=== PATIENT | male | born 1985 | race Caucasian/White ===

== ENCOUNTER 2023-10-16 06:51 | Emergency (ER) | payer OTHER, SELFPAY ==
[2023-10-16] VITALS (8 sets, daily range): BP systolic 46–190; BP diastolic 34–114; BMI 27.6
[2023-10-16] MEDS: DILAUDID 0.5 MG IV (07:31)
[2023-10-16] MEDS: ZOFRAN 4 MG IV (07:31)
[2023-10-16] MEDS: NSS 1000 IV ×2 (07:32→09:02)
[2023-10-16 07:53] LABS: % Basophils 0.7 % (0-2); % Immature Granulocytes 0.3 % (0-0.5); % Lymphocytes 25.5 % (20.5-51.1); % Monocytes 8.5 % (1.7-9.3); Absolute Basophils 0.1 10^3/uL (0-0.2); Absolute Eosinophils 0.5 10^3/uL (0-0.7); Absolute Lymphocytes 1.8 10^3/uL (1.2-3.4); Absolute Monocytes 0.6 10^3/uL (0.1-0.6); Absolute Neutrophils 4.1 10^3/uL (1.4-6.5); Hematocrit 43.8 % (39.0-52.0); Hemoglobin 15.3 g/dL (13.0-18.0); Mean Corp Hgb Conc. 34.9 g/dL (33.0-37.0); Mean Corpuscular Hgb 31.3 pg (27.0-31.0); Mean Corpuscular Volume 89.6 fL (80.0-94.0); Mean Platelet Volume 9.9 fL (7.4-10.4); Nucleated Red Blood Cells % 0 % (-); Platelet Count 252 10^3/uL (130-400); Red Blood Cell Count 4.89 10^6/uL (4.70-6.10); Red Cell Dist. Width 12.1 % (11.5-14.5); White Blood Cell Count 7.1 10^3/uL (4.8-10.8)
[2023-10-16 07:54] LABS: INR 1.03; PT 13.5 Sec (11.4-14.6)
[2023-10-16 07:55] LABS: APTT 30.2 Sec (23.4-35.0)
[2023-10-16 08:04] LABS: Lactic Acid 0.6 mmol/L (0.7-2.0)
--- NOTE | 2023-10-16 08:04 | EDRN ---
the pt pressed the call conway and this RN entered the pts room, the pt stated to this RN, 'I need pain medication', this RN notified the pt that he was given pain medication, the pt stated to this RN, 'I need more pain medication, i need it every
hour', this RN notified the provider Ed Andrea LITTLE and per provider labs need to come back and scan has to be done and the pts pain will be reassessed, will continue to monitor the pt closely
[2023-10-16 08:06] LABS: ALT (SGPT) 16 U/L (0-50); AST (SGOT) 22 U/L (17-59); Albumin 4.5 g/dl (3.5-5.0); Alkaline Phosphatase 71 U/L (38-126); Blood Urea Nitrogen 22 mg/dl (9-20); Calcium 9.5 mg/dl (8.4-10.2); Carbon Dioxide 22 mmol/L (22-30); Chloride 108 mmol/L (98-107); Estimated Creatinine Clearance 107 ml/min; Glucose 107 mg/dl (70-99); Potassium 4.3 mmol/L (3.5-5.1); Sodium 137 mmol/L (135-145); Total Bilirubin 0.5 mg/dl (0.2-1.3); Total Protein 7.4 g/dl (6.3-8.2); eGFR > 60.00
--- NOTE | 2023-10-16 08:19 | EDRN ---
the pt pressed the call conway and this RN entered the pts room, the pt stated to this RN, 'I am in alot of pain get the doctor in here now', this RN notified provider Moses Mendez, the pt is in NSR in the 60's, last BP 113/71 (83), Sp02 98% on RA, no
s/s of distress, will continue to monitor the pt closely
--- NOTE | 2023-10-16 08:25 | EDRN ---
the pt pressed the call conway and this RN entered the pts room, the pt stated to this RN, 'I am in pain and i haven't received pain medication, i want the doctor to give me more dilaudid, i should be getting it every 1 to 2 hours', this RN notified
the pt that he received dilaudid and that the provider would be in to reassess the pt, the pt was also notified that CT scan needed to be performed as well, the pt stated to this RN, 'Well if someone is in pain they should get pain medication and i
have not received it', this RN reminded the pt again that he received dilaudid, this RN notified provider Moses LITTLE
[2023-10-16 08:39] LABS: Lipase > 4000 U/L (23-300)
--- NOTE | 2023-10-16 08:42 | EDRN ---
the pt is refusing to go to CT scan, provider notified
--- NOTE | 2023-10-16 08:45 | EDRN ---
Dr. Chan is at the pts bedside speaking with the pt, and per Dr. Cahn after the pt comes back from CT scan, pain medication is to be administered, the pt is agreeable to this, this RN noticed after the pt left for CT scan that the pts room smelled
like smoke, this RN will speak to the pt about this when the pt comes back from CT scan
--- NOTE | 2023-10-16 08:50 | EDRN ---
this RN entered the pts room when the pt got back from CT scan, this RN asked the pt if he was smoking in the room because this RN thought the pts room smelled like smoke, the pt stated to this RN, 'I do smoke every day but i haven't smoked in here
no', this RN asked the pt if he had cigarettes and a converter operator with him and the pt stated that he did, this RN went over the smoking policy of the hospital and the pt is agreeable to not smoke in hospital, provider notified
--- NOTE | 2023-10-16 08:57 | ED.GENMED ---
History of Present Illness
<Carlitos Mendez Jr., PA-C - Last Filed: 10/17/23 22:07>
General
Chief Complaint: Abdominal Pain
Source: patient
Exam Limitations: none
Time Seen by Provider: 10/16/23 07:05
Nursing documentation reviewed up to this point in time: agreed with
History of Present Illness
History of Present Illness:
38-year-old male with past medical history of chronic pancreatitis, previous renal failure presenting to the emergency department today with concerns of upper abdominal discomfort over the past few hours took 2 tramadol at home without relief.
Denies any chest pain shortness of breath fevers any recent illness otherwise.
<Adithya Chan MD - Last Filed: 10/16/23 11:57>
Travel History
Have you had any contact with someone who has COVID-19?: No
Do you have any symptoms of coronavirus? Fever > 100 degrees, chills, cough, shortness of breath, sore throat, loss of taste or smell, muscle aches, or headache?: No
<Adithya Chan MD - Last Filed: 10/16/23 11:57>
Past History
ED Past Medical History: Other (Pancreatitis, pancreatic necrosis)
ED Past Surgical History: Other (Pancreatic stent)
Social History
Tobacco: Smoker
Alcohol: Former
Drug: None
Personal: Other
Living: with family
Employment: Other
Review of Systems
<Carlitos Mendez Jr., PA-C - Last Filed: 10/17/23 22:07>
Review of Systems
Allergies reviewed?: Yes
All Other Systems: ROS reviewed and negative except as documented in HPI and ROS
Phy Exam
<Carlitos Mendez Jr., PA-C - Last Filed: 10/17/23 22:07>
Physical Exam
Physical Exam:
GENERAL: Alert , in no apparent distress
EYE: pupils equal and reactive
NECK: Supple, no significant adenopathy.
ENT: o/p clr, mmm.
CARDIAC: Regular rate and rhythm .
LUNGS: Clear breath sounds bilaterally, no acute respiratory distress, no wheezes/rales/rhonchi
ABDOMEN: Epigastric abdominal pain no r/g, no cvat
NEUROLOGICAL: Alert and oriented, no focal neuro deficits
SKIN: Warm and dry, skin intact.
MUSCULOSKELETAL: No edema, well perfused.
PSYCH: Normal and appropriate interaction.
Course
<Carlitos Mendez Jr., RAFAELA - Last Filed: 10/17/23 22:07>
Orders/Labs/Results
Orders:
Orders
10/16/23 07:14
0.9% Sodium Chloride 1000 ml [Nss] 1,000 ml IV BOLUS
HYDROmorphone [Dilaudid] 0.5 mg IV NOW STA
Ondansetron Injectable [Zofran] 4 mg IV NOW STA
10/16/23 07:16
CT Abd/Pel (IV only)-DH only Urgent
Comment:
Reason For Exam: upper abd pain
10/16/23 07:22
Complete Blood Count/With Diff Urgent
Comprehensive Metabolic Panel Urgent
Lactic Acid Urgent
Lipase Urgent
PTT Urgent
Prothrombin Time Urgent
10/16/23 08:48
0.9% Sodium Chloride 1000 ml [Nss] 1,000 ml IV BOLUS
HYDROmorphone [Dilaudid] 1 mg IV NOW STA
10/16/23 08:51
HYDROmorphone [Dilaudid] 1 mg IV NOW STA
Pantoprazole [Protonix IV] 40 mg IV NOW STA
10/16/23 09:29
Code Status As Directed
Resuscitation Status: Full Code
Abnormal Lab Results
10/16/23
07:22
MCH 31.3 H pg
(27.0-31.0)
Eosinophils % 7.0 H %
(0-6)
Chloride 108 H mmol/L
(98-107)
BUN 22 H mg/dl
(9-20)
Glucose 107 H mg/dl
(70-99)
Lactic Acid 0.6 L mmol/L
(0.7-2.0)
Lipase > 4000 H* U/L
(23-300)
10/16/23 07:22
10/16/23 07:22
Vital Signs
Initial and Last Documented VS:
Initial Vital Signs
Temp Pulse Resp BP Pulse Ox
97.9 F 78 18 190/114 97
10/16/23 06:55 10/16/23 06:55 10/16/23 06:55 10/16/23 06:55 10/16/23 06:55
Last Documented Vital Signs
Temp Pulse Resp BP Pulse Ox
97.9 F 56 12 99/82 96
10/16/23 06:55 10/16/23 11:00 10/16/23 08:30 10/16/23 11:00 10/16/23 11:00
<Adithya Chan MD - Last Filed: 10/16/23 11:57>
Orders/Labs/Results
Orders:
Orders
10/16/23 07:14
0.9% Sodium Chloride 1000 ml [Nss] 1,000 ml IV BOLUS
HYDROmorphone [Dilaudid] 0.5 mg IV NOW STA
Ondansetron Injectable [Zofran] 4 mg IV NOW STA
10/16/23 07:16
CT Abd/Pel (IV only)-DH only Urgent
Comment:
Reason For Exam: upper abd pain
10/16/23 07:22
Complete Blood Count/With Diff Urgent
Comprehensive Metabolic Panel Urgent
Lactic Acid Urgent
Lipase Urgent
PTT Urgent
Prothrombin Time Urgent
10/16/23 08:48
0.9% Sodium Chloride 1000 ml [Nss] 1,000 ml IV BOLUS
HYDROmorphone [Dilaudid] 1 mg IV NOW STA
10/16/23 08:51
HYDROmorphone [Dilaudid] 1 mg IV NOW STA
Pantoprazole [Protonix IV] 40 mg IV NOW STA
10/16/23 09:29
Code Status As Directed
Resuscitation Status: Full Code
Abnormal Lab Results
10/16/23
07:22
MCH 31.3 H pg
(27.0-31.0)
Eosinophils % 7.0 H %
(0-6)
Chloride 108 H mmol/L
(98-107)
BUN 22 H mg/dl
(9-20)
Glucose 107 H mg/dl
(70-99)
Lactic Acid 0.6 L mmol/L
(0.7-2.0)
Lipase > 4000 H* U/L
(23-300)
10/16/23 07:22
10/16/23 07:22
Vital Signs
Initial and Last Documented VS:
Initial Vital Signs
Temp Pulse Resp BP Pulse Ox
97.9 F 78 18 190/114 97
10/16/23 06:55 10/16/23 06:55 10/16/23 06:55 10/16/23 06:55 10/16/23 06:55
Last Documented Vital Signs
Temp Pulse Resp BP Pulse Ox
97.9 F 56 12 99/82 96
10/16/23 06:55 10/16/23 11:00 10/16/23 08:30 10/16/23 11:00 10/16/23 11:00
<Carlitos Mendez Jr., PA-C - Last Filed: 10/17/23 22:07>
MDM/Problems Addressed
MDM/Problems Addressed:
38-year-old male presenting to the emergency department today with concerns of upper abdominal discomfort as well as nausea*roughly an hour prior to my evaluation. Does have a history of pancreatitis does feel similar to this. Symptoms seem to be
consistent with pancreatitis lipase greater than 4000 patient was given fluids pain medication and admitted for further assessment.
After patient admitted he claims that he would like to receive Dilaudid every hour. This would not be the plan moving forward he claims that if he cannot get Dilaudid every hour on the hour he would like to leave and he will go to [facility]. Was explained to him his current medical state and the potential risks of leaving he understood and consented to going directly to [facility]. Patient is of sound mind and does have capacity. Patient signed AMA paperwork and is
at this time.
<Carlitos Mendez Jr., PA-C - Last Filed: 10/17/23 22:07>
*Critical Care Note
Total Time (30-74mins, 75-104mins- exclusive of procedures): Not Applicable
<Adithya Chan MD - Last Filed: 10/16/23 11:57>
ED Attending Note
Patient seen and examined by attending physician: Yes
ED Attending Note:
Pt with history of pancreatitis, presents ED secondary to recurrent upper abdominal pain with nausea sensation starting this morning. Denies fever or chills. Denies vomiting or diarrhea. Denies trauma. No recent change in medications or diet.
Denies drinking alcohol.
Physical Exam
General: mild painful distress, not acutely ill. afebrile.
Head: nc/at. eomi
Neck: supple. no meningeal signs.
Heart: s1/s2 regular rate and rhythm, no murmur. equal radial pulses.
Lungs: no acute respiratory distress. clear bilaterally
Abdomen: normal bowel sounds. no distention. mild epigastric tenderness to palpation.
Neuro: alert and oriented. no focal neurological deficits
Skin: no rash
Psychiatric: well kept. interactive and cooperative
Extremities: no edema. no calf tenderness.
History/exam/CT scan concerning for recurrent acute pancreatitis. Decision made to admit patient.
Unfortunately, patient demanding dialudid every 1hr to treat his pain. Informed patient that hospitalist/GI during admission will determine best of course of treatment, including pain management. At that point, patient decided to leave ED against
medical advice. Pt made aware of risks involved, including worsening condition, i.e. . Pt is alert/awake/oriented and mentally competent at time of departure.
-
Portions of this chart may have been created with voice recognition software.� Occasional wrong word or��sound alike� substitutions may have occurred due to the inherent limitations of voice recognition software.
Discharge Plan
Departure
Patient Disposition: Against Medical Advice
Date of Disposition: 10/16/23
Time of Disposition: 10:26
Admit to: Med/Surg
Patient with high blood pressure during this ER visit?: No
Condition: Good
Covid-19: Not Applicable
Discharge Problem:
Acute pancreatitis
Prescriptions:
No Action
gabapentin 600 mg tablet
600 mg PO TID
tramadol 50 mg tablet
50 mg PO Q8HPRN PRN (Reason: moderate Pain) Qty: 20 0RF
Patient Comments:
10/16/23:last filled 10/07/23, 30 tabs for 10 days from [id number]
hydromorphone 2 mg tablet
2 mg PO Q4H PRN (Reason: severe pain )
Rx Instructions:
10/16/23: last filled 10/02/23 #9 tablets [id number]
bupropion HCl 150 mg tablet extended release 24 hr
150 mg PO DAILY
Creon 6,000-19,000 -30,000 unit capsule,delayed release(DR/EC)
2 cap PO AC PRN (Reason: with fatty meal )
Referrals:
Kim Christianson MD [Family Provider] -
Interventions
Interventions:
*Risk Screen - Suicide Last Done: 10/16/23 06:56
*General Assessment Last Done: 10/16/23 06:56
*Neglect/Abuse Screening Last Done: 10/16/23 06:56
ED- Fall Risk Assessment Last Done: 10/16/23 07:27
*ED COVID-19 Vaccine History Last Done: 10/16/23 07:27
*Nursing Disposition Last Done: 10/16/23 11:27
ZN-Oaclkb-Somjimvdpd Assessment Last Done: 10/16/23 07:27
Discharge Date and Time
Discharge Date/Time: 10/16/23 11:33
[2023-10-16] MEDS: PROTONIX IV 40 MG IV (08:58)
[2023-10-16] MEDS: DILAUDID 1 MG IV (08:58)
--- NOTE | 2023-10-16 10:25 | CON.GI ---
Consultation
-
Date/Time Consultation Requested: 10/16/23 @ 09:31
Date/Time Consultation Performed: 10/16/23 @ 10:30
Requesting Provider: Dr. Louise
Performing Provider: PILI Oconnell; Dr. Driver
Reason for Consultation: pancreatitis
Medical History
Chief Complaint / HPI
Chief Complaint: abdominal pain
History of Present Illness:
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
current cigarette smoker, occasional marijuana use, who presented to the hospital with complaints of abdominal pain. We are being asked to evaluate for pancreatitis. Upon review of prior records, he has had recurrent bouts of pancreatitis dating
back to 2007 which initially was secondary to alcohol use. He has not drank since then but has had multiple recurrent episodes of pancreatitis and has been seen here numerous times in the past 6 months for recurrent episodes of pancreatitis thought
to be idiopathic in nature.� He has a history of necrotizing pancreatitis with previous pancreatic stenting with removal in the past, previously following with Dr. Eli Weston at [facility], who no longer works with the practice.� Historically
with normal IgG4 and triglyceride levels.� His last admission here was in August where he was advised to follow-up with Dr. Charles arambula for further workup and evaluation.�He had subsequent short admission a week later. He was advised to
follow-up with a pain management doctor but has failed to do so. Today he reports he again has recurrent pain similar to his chronic intermittent pain. He notes that he had recently had a change in his medications from tramadol to oral Dilaudid
and is scheduled to see a shipyard painter helper on November 12. He notes yesterday evening into this morning he awoke suddenly out of his sleep with very severe pain which often leads him to evaluation in the emergency room. He does admit to
some nausea but denies any vomiting. He notes he did start a new medication for depression but otherwise no new medications. He denies any recent antibiotics. He continues to abstain from alcohol. He does still smoke occasional marijuana and
smokes 10 cigarettes daily although had been advised to stop in the past. He otherwise denies any unintentional weight loss, fevers, chills, chest pain, or shortness of breath. He has an upcoming appointment with his GI DrJoaquin Weston on 11/07.
He does take Creon but only with fatty meals. Evaluation in the emergency room showeda Lipase greater than 4000, with normal LFTs. No leukocytosis or fevers. CT of the abdomen pelvis was done with IV contrast only showing findings suspicious for
mild acute upon chronic pancreatitis. He was treated with IV fluids, IV pain medication, plan to be admitted for further evaluation by GI. Per updated notes the patient did leave AMA after discussion with the hospitalist on his pain management
regimen
Past Medical History
Past Medical History: Other (History of alcohol abuse, no use since 2008, recurrent pancreatitis, history of necrotizing pancreatitis requiring PD stent and removal, chronic abdominal pain)
Past Surgical History: Appendectomy, Orthopedic (Right leg reconstructive surgery) and Other (Pancreatic stent)
Social History
Tobacco: Smoker
Alcohol: Former
Drug: Marijuana (Occasional)
Living: With Family
Family History
Family History: Reviewed & Not Pertinent
Allergies / Home Medications
Allergy/AdvReac Type Severity Reaction Status Date / Time
No Known Allergies Allergy Verified 10/16/23 06:54
Medication Instructions Recorded
gabapentin 600 mg tablet 600 mg PO TID Neurological 06/04/23
Condition
tramadol 50 mg tablet 50 mg PO Q8HPRN PRN moderate Pain 08/23/23
#20 tabs
bupropion HCl 150 mg 24 hr tablet, 150 mg PO DAILY Mental 10/16/23
extended release Health/Anxiety
hydromorphone 2 mg tablet 2 mg PO Q4H PRN severe pain 10/16/23
khzajz-tbnwjqif-ebbwobf 2 cap PO AC PRN with fatty meal 10/16/23
6,000-19,000-30,000 unit
capsule,delayed rel (Creon)
Review of Systems
-
History Source: Patient
Constitutional: Reports Sleep Disturbance
EENT: Reports No Symptoms
Respiratory: Reports No Symptoms
Cardiac: Reports No Symptoms
Abdomen/GI: Reports Abdominal Pain and Nausea
: Reports No Symptoms
Musculoskeletal: Reports No Symptoms
Skin: Reports No Symptoms
Neurological: Reports No Symptoms
Vital Signs
Temp Pulse Resp BP Pulse Ox
97.9 F 60 12 46/34 96
10/16/23 06:55 10/16/23 10:00 10/16/23 08:30 10/16/23 10:00 10/16/23 10:00
Physical Exam
Exam
General: Well Developed, Well Nourished and Other (Mild distress due to pain)
HEENT: Normocephalic, Anicteric and Atraumatic
Respiratory: Clear
Cardiac: S1/S2 and Regular Rhythm
GI: Soft, Non Distended (No significant abdominal distention), Normal Bowel Sounds and Tender (Generalized tenderness throughout the abdomen but worse in the left upper quadrant)
Skin: Warm and Dry
Neuro: Awake and Alert
Results
WBC 7.1 10^3/uL (4.8-10.8) 10/16/23 07:22
Hgb 15.3 g/dL (13.0-18.0) 10/16/23 07:22
Hct 43.8 % (39.0-52.0) 10/16/23 07:22
MCV 89.6 fL (80.0-94.0) 10/16/23 07:22
Plt Count 252 10^3/uL (130-400) 10/16/23 07:22
Absolute Neuts (auto) 4.1 10^3/uL (1.4-6.5) 10/16/23 07:22
PT 13.5 Sec (11.4-14.6) 10/16/23 07:22
INR 1.03 10/16/23 07:22
APTT 30.2 Sec (23.4-35.0) 10/16/23 07:22
Sodium 137 mmol/L (135-145) 10/16/23 07:22
Potassium 4.3 mmol/L (3.5-5.1) 10/16/23 07:22
Chloride 108 mmol/L (98-107) H 10/16/23 07:22
Carbon Dioxide 22 mmol/L (22-30) 10/16/23 07:22
BUN 22 mg/dl (9-20) H 10/16/23 07:22
Creatinine 0.8 mg/dL (0.7-1.3) 10/16/23 07:22
Calcium 9.5 mg/dl (8.4-10.2) 10/16/23 07:22
Total Bilirubin 0.5 mg/dl (0.2-1.3) 10/16/23 07:22
AST 22 U/L (17-59) 10/16/23 07:22
ALT 16 U/L (0-50) 10/16/23 07:22
Alkaline Phosphatase 71 U/L (38-126) 10/16/23 07:22
Lipase > 4000 U/L (23-300) H* 10/16/23 07:22
Diagnostic Image Results:
10/16/23 CT of the abdomen and pelvis with IV contrast: Findings suspicious for mild acute superimposed upon chronic pancreatitis.
Prior GI procedures:
EGD:� multiple EUS procedures per pt, last unknown (procedures at [facility])
Colonoscopy:� he believes he had one but is unsure when/where, results unknown (taken from prior records)
Assessment / Plan
-
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
current cigarette smoker, occasional marijuana use, who presented to the hospital with complaints of abdominal pain. We are being asked to evaluate for pancreatitis. He has history of recurrent pancreatitis chronically for many years since
approximately 2007 thought to be initially secondary to alcohol use but now idiopathic in nature. Has required prior PD stenting. Following with GI Dr. Weston. He had been recommended to see pain management which she has an appointment for at the
end of October.
Problem list:
-acute/chronic idiopathic pancreatitis, multiple episodes since 2007 (initially thought to be secondary to alcohol)
-hx PD stenting with removal
-current cigarette smoker
-Hx heavy alcohol use, no use since 2008 per pt
-chronically thrombosed splenic vein with collaterals
-chronic abdominal pain
-occasional marijuana use
Recommendations:
-Etiology of chronic pancreatitis suspected to be idiopathic. He has had recurrent episodes with hx of necrotizing pancreatitis, requiring pancreatic stenting in the past. He has been followed at [facility] with Dr. Baker with follow-up
appointment with her at the end of October.
-The patient did leave AGAINST MEDICAL ADVICE and should follow-up with his outpatient GI doctor and shipyard painter helper as previously directed.
-I did review with him on compliance with using his Creon with fatty meals prior to him leaving.
-He continues to abstain from alcohol and I did reinforce this
-If he returns to hospital further management and plan to be discussed.
Data Reviewed
-
CT Scan: Report Reviewed by me
Old Records: Reviewed
-
-
Thank you for consultation and allowing me to participate in the patient's care. Please call the general contractor GI physician during the after hours with any questions or concerns.
--- NOTE | 2023-10-16 10:27 | EDRN ---
blood pressure recorded at 10:00 of 46/34 is not accurate provider notified of blood pressure, BP retaken and is 107/85
--- NOTE | 2023-10-16 10:52 | EDRN ---
GI at the pts bedside, pt stating to provider, 'I need pain medication', it was explained to the pt by this RN and GI provider that he was given pain medication and that he cannot have pain medication every hour, GI will follow up with hospitalist
--- NOTE | 2023-10-16 11:14 | EDRN ---
the pt pressed the call conway and this RN entered the pts room, the pt stated to this RN, 'I want Dilaudid every hour, that's what the other hospital did, and i want it here, if i can't have dilaudid every hour i want to leave, take my IV out now, i
don't want to be here, you people aren't helping me with my pain, i want pain meds every hour', this RN notified Dr. Chan and Moses LITTLE
--- NOTE | 2023-10-16 11:18 | EDRN ---
Moses LITTLE at the pts bedside and pt is stating to PA, 'At the hospital in [place] they gave me dilaudid 1mg every 1 to 2 hours and if you can't give me that here i am leaving and going to the hospital in [place]'
--- NOTE | 2023-10-16 11:22 | EDRN ---
the pt signed AMA form with Moses Mendez and this RN present
--- NOTE | 2023-10-16 11:27 | W.PN.UPDATE ---
Update Note
Progress Note Update
Patient was going to be admitted to Hospitalist service but he demanded Dilaudid every 1 hour and subsequently decided to sign AGAINST MEDICAL ADVICE and ER physician discussed with patient and signed him out.
== END 2023-10-16 11:33 | disposition left against medical advice (07) ==
LOC: EMR 06:51
PROVIDERS: Physician Assistant; EMERGENCY PHYSICIAN Emergency Medicine; FAMILY PHYSICIAN Family Medicine
DX: K85.90 Acute pancreatitis without necrosis or infection, unspecified (principal); Z87.19 Personal history of other diseases of the digestive system
CPT/HCPCS: 99285; 96374; 96375 ×2; 96361 ×2; 96376; 74177; 80053; 83605; 83690; 85025; 85610; 85730; Q9967

== ENCOUNTER 2024-04-28 22:33 | Inpatient (IN) | payer OTHER, SELFPAY ==
[2024-04-28 17:06] VITALS: BP 160/115
[2024-04-28] MEDS: LR 1000 IV ×2 (18:15→23:35)
[2024-04-28] MEDS: DILAUDID 2 MG IV (18:15)
[2024-04-28 18:25] LABS: % Basophils 0.8 % (0-2); % Eosinophils 3.8 % (0-6); % Immature Granulocytes 0.3 % (0-0.5); % Lymphocytes 20.2 % (20.5-51.1); % Monocytes 6.5 % (1.7-9.3); % Neutrophils 68.4 % (42.2-75.2); Absolute Basophils 0.1 10^3/uL (0-0.2); Absolute Eosinophils 0.3 10^3/uL (0-0.7); Absolute Lymphocytes 1.8 10^3/uL (1.2-3.4); Absolute Monocytes 0.6 10^3/uL (0.1-0.6); Hematocrit 41.3 % (39.0-52.0); Hemoglobin 14.6 g/dL (13.0-18.0); Mean Corp Hgb Conc. 35.4 g/dL (33.0-37.0); Mean Corpuscular Hgb 31.9 pg (27.0-31.0); Mean Corpuscular Volume 90.4 fL (80.0-94.0); Mean Platelet Volume 10.1 fL (7.4-10.4); Nucleated Red Blood Cells % 0 % (-); Platelet Count 255 10^3/uL (130-400); Red Blood Cell Count 4.57 10^6/uL (4.70-6.10); Red Cell Dist. Width 12.6 % (11.5-14.5); White Blood Cell Count 8.8 10^3/uL (4.8-10.8)
--- NOTE | 2024-04-28 18:34 | ED.GENMED ---
History of Present Illness
General
Chief Complaint: Abdominal Pain
Source: patient
Exam Limitations: none
Time Seen by Provider: 04/28/24 17:40
Nursing documentation reviewed up to this point in time: agreed with
History of Present Illness
History of Present Illness:
39 y/o M with chronic necrotizing pancreatitis, frequent ER visits, usually [facility] where his GI is
here with 4 days LUQ pain and today n/v x 1
he says he typically does not vomit
he chronically deals with pain, and has to limit what solid foods he eats and how frequently he eats in general
he was prescribed dilaudid previously but says he has jsut been on gabapentin more recently in the past month or so
pt says he usually has to go to the ER once a month
when his lipase is < 1000, he doesn't get CT
he says this time is different becuase of the vomiting
he has not had fever, vomiting blood, black stool, constipation, chest pain, shortness of breath
this feels simlar top revious pancreatitis
no longer drinks alcohol
Past History
Past History
ED Past Medical History: Other (Pancreatitis, pancreatic necrosis)
ED Past Surgical History: Other (Pancreatic stent)
Social History
Tobacco: Smoker
Alcohol: Former
Drug: None
Personal: Other
Living: with family
Employment: Other
Review of Systems
Review of Systems
Allergies reviewed?: Yes
All Other Systems: Not applicable
Phy Exam
Physical Exam
Physical Exam:
GENERAL: Alert , in no apparent distress
EYE: pupils equal and reactive
NECK: Supple
ENT: o/p clr, mmm.
CARDIAC: Regular rate and rhythm .
LUNGS: Clear breath sounds bilaterally, no acute respiratory distress, no wheezes/rales/rhonchi
ABDOMEN: Soft, m moderate left upper quadrant tenderness, no r/g, no cvat, normal bowel sounds
NEUROLOGICAL: Alert and oriented, no focal neuro deficits
SKIN: Warm and dry, skin intact.
MUSCULOSKELETAL: No edema, well perfused.
PSYCH: Normal and appropriate interaction.
Course
Orders/Labs/Results
Orders:
Orders
04/28/24 Breakfast
NPO
Allow oral meds: Yes
Allow clear liquids: No
04/28/24 17:59
CT Abd/Pel (IV only)-DH only Urgent
Comment:
Reason For Exam: upper abd pain, h/o pancreatitis
Lactated Ringers [Lr] 1,000 ml IV BOLUS
04/28/24 18:13
HYDROmorphone [Dilaudid] 2 mg IV NOW STA
04/28/24 18:20
Complete Blood Count/With Diff Urgent
Comprehensive Metabolic Panel Urgent
Lipase Urgent
04/28/24 21:31
Admit/Transfer Patient As Directed
Co-Sign Provider:
Level of Care: Inpatient admission
Assign to:: Medical/Surgical
Physician / Group: maurice
Diagnosis: pancreatitis
Reason for Hospitalization: pancreatitis
Expected length of stay greater than two midnights?: Yes
ELOS- Estimated Length of Stay in days: 3
I certify the patient meets the requirements for IP care: Yes
PRN Pain Medication Management As Directed
May give lesser potent ordered pain med per pt: Yes
preference::
Protocol:: Medication orders for pain may be administered in a
manner that supports deferring to patient preference
when the pt is:
- Requesting an ordered lesser potent pain medication.
Least to most potent pain medications are defined
as: acetaminophen < NSAID < tramadol < opioids
(morphine, oxycodone, hydromorphone).
- Requesting a lesser dose of the same medication IF
ORDERED.
- Requesting a less intrusive route of administration
if both routes are prescribed by the provider (PO <
IV).
04/28/24 21:32
Code Status As Directed
Resuscitation Status: Full Code
04/28/24 22:02
EKG [Electrocardiogram (*1)] Stat
Reason for Study: QTc Monitoring
04/28/24 22:05
HYDROmorphone [Dilaudid] 1 mg IV NOW STA
04/28/24 22:06
GASTROINTESTINAL CONSULT Routine
Consulting Provider: Muna Allison
Was physician already notified: No
Reason for consult: pancratitis
04/28/24 22:07
Consult Notification Routine
Specialty to Notify: Gastroenterology
04/28/24 23:00
Gabapentin [Neurontin] 600 mg PO TID
04/28/24 23:01
HYDROmorphone [Dilaudid] 1 mg IV Q3HPRN PRN
Ketorolac [Toradol] 15 mg IV Q6HPRN PRN
Lactated Ringers [Lr] 1,000 ml IV 150 mls/hr
Nicotine [Nicoderm Transdermal] 21 mg TRANSDERM DAILY
Ondansetron Injectable [Zofran] 4 mg IV Q6HPRN PRN
04/28/24 23:01
Activity As Directed
Activity Level: As Tolerated
Intake/ Output As Directed
Frequency: Per unit guidelines
Vital Signs As Directed
Frequency: Per unit guidelines
DX Deep Vein Thrombosis Video Routine
04/29/24 06:00
Complete Blood Count/No Diff IN AM
Lipase IN AM
04/29/24 08:00
Duloxetine Delayed Release [Cymbalta Delayed Release] 30 mg PO DAILY
Pantoprazole [Protonix] 40 mg PO DAILY
04/29/24 18:00
Enoxaparin Sodium [Lovenox] 40 mg SC QPM
04/30/24 06:00
Complete Blood Count/No Diff IN AM
Lipase IN AM
05/01/24 06:00
Complete Blood Count/No Diff IN AM
Lipase IN AM
05/02/24 06:00
Complete Blood Count/No Diff IN AM
Lipase IN AM
05/03/24 06:00
Complete Blood Count/No Diff IN AM
Abnormal Lab Results
04/28/24
18:20
RBC 4.57 L 10^6/uL
(4.70-6.10)
MCH 31.9 H pg
(27.0-31.0)
Lymphocytes % 20.2 L %
(20.5-51.1)
Chloride 108 H mmol/L
(98-107)
BUN 22 H mg/dl
(9-20)
Glucose 119 H mg/dl
(70-99)
Lipase 3468 H* U/L
(23-300)
04/28/24 18:20
04/28/24 18:20
Vital Signs
Initial and Last Documented VS:
Initial Vital Signs
Temp Pulse Resp BP Pulse Ox
98.2 F 77 18 160/115 97
04/28/24 17:06 04/28/24 17:06 04/28/24 17:06 04/28/24 17:06 04/28/24 17:06
Last Documented Vital Signs
Temp Pulse Resp BP Pulse Ox
98.2 F 60 18 122/96 97
04/28/24 17:06 04/28/24 19:28 04/28/24 19:28 04/28/24 19:28 04/28/24 19:28
MDM/Problems Addressed
Differential Diagnosis Includes:
pancreatitis, gastritis, chronic pain
MDM/Problems Addressed:
39 y/o M with acute on chronic pancreatitis, pain x 4 days, vomit today, no fever
lipase >3000, ct shows acute on chronic necrotizing pacnreatitis; no pseudocyst
pt feels better after dilaudid
when i went to speak to him abou this results, he was hiding that he was eating a sandwich
he says with the pain gone, he felt better enough to eat and was hungry
h eknows he shouldn't eat solids with acute pancreatitis flare
he does agree to stay and abide by NPO or clears
*Critical Care Note
Total Time (30-74mins, 75-104mins- exclusive of procedures): Not Applicable
ED Attending Note
-
Portions of this chart may have been created with voice recognition software.� Occasional wrong word or��sound alike� substitutions may have occurred due to the inherent limitations of voice recognition software.
Discharge Plan
Departure
Patient Disposition: Admit
Date of Disposition: 04/28/24
Time of Disposition: 20:46
Admit to: Med/Surg
Presentation/result/management discussed w/ accepting MD/DO: Hospitalist
Condition: Fair
Covid-19: Not Applicable
Discharge Problem:
Acute pancreatitis
Interventions
Interventions:
*Risk Screen - Suicide Last Done: 04/28/24 18:09
*General Assessment Last Done: 04/28/24 18:09
*Neglect/Abuse Screening Last Done: 04/28/24 18:09
ED- Fall Risk Assessment Last Done: 04/28/24 23:01
*Nursing Disposition Last Done: 04/28/24 23:01
ME-Ikjldk-Nlnkdthzch Assessment Last Done: 04/28/24 18:09
Discharge Date and Time
Discharge Date/Time: 04/28/24 23:01
[2024-04-28 18:48] LABS: ALT (SGPT) 20 U/L (0-50); AST (SGOT) 22 U/L (17-59); Albumin 4.5 g/dl (3.5-5.0); Alkaline Phosphatase 65 U/L (38-126); Blood Urea Nitrogen 22 mg/dl (9-20); Calcium 9.4 mg/dl (8.4-10.2); Carbon Dioxide 23 mmol/L (22-30); Chloride 108 mmol/L (98-107); Glucose 119 mg/dl (70-99); Potassium 4.5 mmol/L (3.5-5.1); Sodium 137 mmol/L (135-145); Total Bilirubin 0.2 mg/dl (0.2-1.3); eGFR > 60.00
[2024-04-28 19:04] LABS: Lipase 3468 U/L (23-300)
--- NOTE | 2024-04-28 19:19 | PHANOTE ---
med rec timmy(04/28/24)-patient states that he uses illegally obtained drugs to help manage the pain. He is unsure of the most recent drug he got, but he has gotten Percocet, Tramadol, and Dilaudid prescribed in the past.
[2024-04-28 19:28] VITALS: BP 122/96
--- NOTE | 2024-04-28 21:10 | HPS.HSE ---
Addendum entered and electronically signed by Ammon López DO 04/28/24 22:59:
Patient seen and examined independently. Agree with findings and plan as set forth by PILI Rodriguez.
Patient is a 39y M with PMH significant for chronic / recurrent pancreatitis followed by GI at [facility]. He has had multiple prior hospitalizations for the same. Patient states that his current discomfort started in the LUQ about 3-4 days
ago. He has had episodes at home of loose stools, N/V and anorexia. Patient denies any fevers / chills. He denies any alcohol intake.
Ass:
Acute on Chronic Pancreatitis
Anxiety / Depression
Plan:
Admit for further evaluation and treatment.
NPO, IVF, pain control / supportive care.
Reviewed with patient that we will try multidrug approach to pain control and will adjust dose / frequency as needed for management of his symptoms.
Will not have scheduled / ATC narcotic dosing.
Patient agreeable at present.
Follow for clinical improvement.
GI evaluation for additional recommendations.
Original Note:
Family Physician
-
Family Physician: Kim Christianson MD
Chief Complaint
-
left upper quad pain
History of Present Illness
39 year old with PMH for depression, chornic pancreatitis, hld presented to us with left upper quad pain for past four days. yesterday he had 3 episodes of diarrhea. today he vomited once. denied TYLER, dizzy or syncopal episode. denied fever, chills,
chest pain, sob. denied dysuria or hematuria.
not sure how compliance with following up with GI as outpatient. he follows with GI at [facility].
Lipase at 3480. CT with chornic pancreatitis. admitting for further management.
Medical History
Past Medical History
Past Medical History: Reports Other
Additional Past Medical History:
depression
chronic pancreatitis
HLD
Past Surgical History: Reports Other
Additional Past Surgical History:
pancreatic stents
Social History
Tobacco: Smoker (1/2 pack a day)
Alcohol: None
Drug: Other (addreall occasionaly)
Personal: Single
Living: Alone
Employment: Employed
Family History
Family History: Not pertinent
Allergies / Home Medications
Allergies reflects when Allergies were last updated in [email or web address].
Home Medications with original date entered in [email or web address]
Allergy/Medication List:
Allergies
Allergy/AdvReac Type Severity Reaction Status Date / Time
No Known Allergies Allergy Verified 04/28/24 17:07
Home Medications
gabapentin 600 mg tablet 600 mg PO TID Neurological Condition 06/04/23
otrafc-bkrrflop-onypffw 6,000-19,000-30,000 unit capsule,delayed rel (Creon) 2 cap PO AC PRN with fatty meal 10/16/23
acetaminophen 500 mg tablet (Tylenol Extra Strength) 1,000 mg PO Q6HPRN PRN mild pain 04/28/24
duloxetine 30 mg capsule,delayed release 30 mg PO DAILY 04/28/24
Review of Systems
-
Constitutional: Reports No Symptoms
EENT: Reports No Symptoms
Respiratory: Reports No Symptoms
Cardiac: Reports No Symptoms
Abdomen/GI: Reports Abdominal Pain, Nausea, Vomiting and Diarrhea
: Reports No Symptoms
Musculoskeletal: Reports No Symptoms
Skin: Reports No Symptoms
Neurological: Reports No Symptoms
Endocrine: Reports No Symptoms
Hematologic/Lymphatic: Reports No Symptoms
Psych: Reports No Symptoms
Physical Exam
Vital Signs
Vital Signs
Temp Pulse Resp BP Pulse Ox
98.2 F 60 18 122/96 97
04/28/24 17:06 04/28/24 19:28 04/28/24 19:28 04/28/24 19:28 04/28/24 19:28
Physical Exam
General: Well Developed, Well Nourished and No Apparent Distress
HEENT: NormoCephalic, Moist mucous membranes and Atraumatic
Respiratory: Clear
Cardiac: S1/S2 and Regular Rhythm; No Murmur or Rub
GI: Soft, Non Distended, Normal Bowel Sounds and Tender; No Organomegaly
Rectal: Deferred by Provider
Musculoskeletal: No Clubbing, No Cyanosis and No Edema
Skin: No Rash
Neuro: AO x 3 and Nonfocal/grossly intact
Psych: Calm
Laboratory Results
-
04/28/24 18:20
04/28/24 18:20
Laboratory Results
Total Bilirubin 0.2 mg/dl (0.2-1.3) 04/28/24 18:20
AST 22 U/L (17-59) 04/28/24 18:20
ALT 20 U/L (0-50) 04/28/24 18:20
Alkaline Phosphatase 65 U/L (38-126) 04/28/24 18:20
Lipase 3468 U/L (23-300) H* 04/28/24 18:20
Data Reviewed
-
CT Scan: Report Reviewed by me
Lab Data: Labs Reviewed by me
Impression/Plan
-
#acute on chronic pancreatitis
-NPO
-fluids continued for hydration
-Lipase 3468
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 Prominent varices in the upper abdomen, including within the wall of the fundus and body of the stomach.Subtle edema involving the
junction of the body and tail the pancreas, extending anteriorly, and likely represents findings of acute pancreatitis superimposed on chronic changes. No evidence for focal collection to suggest abscess or developing pseudocyst at this time.Two
nephroliths involving the right kidney.Moderate amount of stool within the colon, suggestive of constipation.
-hxt of PD stenting removal
-LR 150cc/hr continued
-Toradol and Dilaudid prn for pain
-Zofran prn for n/v
-GI consult
#depression
-duloxetine continued
#DVT prophylaxis
-Lovenox
#CODE status
-full code
[2024-04-28] MEDS: DILAUDID 1 MG IV (22:17)
[2024-04-28 23:00] VITALS: BMI 22.3
[2024-04-28] MEDS: TORADOL 15 MG IV (23:33)
[2024-04-28] MEDS: NEURONTIN 600 MG PO (23:34)
[2024-04-28 23:35] VITALS: BP 132/79
[2024-04-28] MEDS: NICODERM TRANSDERMAL 21 MG TRANSDERM (23:50)
[2024-04-29] MEDS: DILAUDID 1 MG IV ×8 (01:06→23:39)
[2024-04-29] MEDS: MELATONIN 3 MG PO (02:41)
[2024-04-29] MEDS: LR 1000 IV ×3 (07:21→19:33)
[2024-04-29] MEDS: PROTONIX 40 MG PO (07:22)
[2024-04-29] MEDS: CYMBALTA DELAYED RELEASE 30 MG PO (07:22)
[2024-04-29] MEDS: NEURONTIN 600 MG PO ×3 (07:22→22:12)
[2024-04-29 07:48] VITALS: BP 112/67
[2024-04-29 09:33] LABS: Hematocrit 40.4 % (39.0-52.0); Mean Corp Hgb Conc. 34.7 g/dL (33.0-37.0); Mean Corpuscular Volume 92.4 fL (80.0-94.0); Mean Platelet Volume 10.1 fL (7.4-10.4); Platelet Count 225 10^3/uL (130-400); Red Blood Cell Count 4.37 10^6/uL (4.70-6.10); Red Cell Dist. Width 12.8 % (11.5-14.5); White Blood Cell Count 11.1 10^3/uL (4.8-10.8)
[2024-04-29 10:08] LABS: Glucose - Point of Care 106 mg/dl (70-99)
[2024-04-29] MEDS: COLACE PO (10:12)
[2024-04-29] MEDS: MIRALAX PO (10:12)
[2024-04-29] MEDS: NICODERM TRANSDERMAL TRANSDERM (10:12)
--- NOTE | 2024-04-29 10:15 | CON.GI ---
Medical History
Chief Complaint / HPI
Chief Complaint: Abdominal pain
History of Present Illness:
Patient is a 39y M with PMH of chronic recurrent pancreatitis who is being followed by Dr. Baker at [facility]. He has a hx of necrotizing pancreatitis in the past and has had multiple prior hospitalizations. Patient states that his pain started 3-4
days ago which was mainly in the midgastric and LUQ region but progressed and became very severe yesterday. Pain radiates to back. He also mentions loose stools, N/V and anorexia which have all resolved now. Patient denies any fevers / chills, SOB,
CP., melena, hematemesis, hematochezia. He states he has not been drinking alcohol since 3 years ago but smokes 12 cigarettes daily. Patient uses gabapentin and Tylenol for pain management at home. He reports about 6lbs weight loss during the past
1-2 months.
Past Medical History
Past Medical History: Other (chronic pancreatitis, necrotizing pancreatitis)
Past Surgical History: Other (pancreatic stent)
Social History
Tobacco: Smoker
Alcohol: Former
Drug: Marijuana
Living: With Family
Family History
Family History: Reviewed & Not Pertinent
Allergies / Home Medications
Allergy/AdvReac Type Severity Reaction Status Date / Time
No Known Allergies Allergy Verified 04/28/24 17:07
�Medication �Instructions �Recorded
gabapentin 600 mg tablet 600 mg PO TID Neurological 06/04/23
Condition
frjlku-tmxxpado-zqxgiza 2 cap PO AC PRN with fatty meal 10/16/23
6,000-19,000-30,000 unit
capsule,delayed rel (Creon)
acetaminophen 500 mg tablet 1,000 mg PO Q6HPRN PRN mild pain 04/28/24
(Tylenol Extra Strength)
duloxetine 30 mg capsule,delayed 30 mg PO DAILY 04/28/24
release
Review of Systems
-
History Source: Patient
Abdomen/GI: Reports Abdominal Pain; Denies Nausea, Vomiting, Diarrhea, Bloody Stools, Black Stools or Anorexia
Neurological: Denies Dizzy
Vital Signs
Temp Pulse Resp BP Pulse Ox
97.9 F 49 16 112/67 94
04/29/24 07:48 04/29/24 07:48 04/29/24 07:48 04/29/24 07:48 04/29/24 07:48
Physical Exam
Exam
General: Well Developed and Comfortable
HEENT: Normocephalic, Anicteric and Moist Mucous Membranes
Respiratory: Clear
Cardiac: S1/S2 and Regular Rhythm
GI: Soft, Non Distended, Normal Bowel Sounds and Tender (moderate midgastric and LUQ tenderness)
Neuro: Awake, Alert, Oriented and AO x 3
Results
WBC 11.1 10^3/uL (4.8-10.8) H 04/29/24 08:54
Hgb 14.0 g/dL (13.0-18.0) 04/29/24 08:54
Hct 40.4 % (39.0-52.0) 04/29/24 08:54
MCV 92.4 fL (80.0-94.0) 04/29/24 08:54
Plt Count 225 10^3/uL (130-400) 04/29/24 08:54
Absolute Neuts (auto) 6.0 10^3/uL (1.4-6.5) 04/28/24 18:20
Sodium 137 mmol/L (135-145) 04/28/24 18:20
Potassium 4.5 mmol/L (3.5-5.1) 04/28/24 18:20
Chloride 108 mmol/L (98-107) H 04/28/24 18:20
Carbon Dioxide 23 mmol/L (22-30) 04/28/24 18:20
BUN 22 mg/dl (9-20) H 04/28/24 18:20
Creatinine 0.8 mg/dL (0.7-1.3) 04/28/24 18:20
Calcium 9.4 mg/dl (8.4-10.2) 04/28/24 18:20
Total Bilirubin 0.2 mg/dl (0.2-1.3) 04/28/24 18:20
AST 22 U/L (17-59) 04/28/24 18:20
ALT 20 U/L (0-50) 04/28/24 18:20
Alkaline Phosphatase 65 U/L (38-126) 04/28/24 18:20
Lipase 3468 U/L (23-300) H* 04/28/24 18:20
Diagnostic Image Results: 04/28/2024
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 Prominent varices in the upper abdomen, including within the wall of the fundus and body of the stomach.
Subtle edema involving the junction of the body and tail the pancreas, extending anteriorly, and likely represents findings of acute pancreatitis superimposed on chronic changes. No evidence for focal collection to suggest abscess or developing
pseudocyst at this time.
Two nephroliths involving the right kidney.
Moderate amount of stool within the colon, suggestive of constipation.
Prior GI Procedures:
EGD:
Colonoscopy:
Assessment / Plan
-
Patient is a 39y M with PMH of chronic recurrent pancreatitis who is being followed by Dr. Baker at [facility]. He is here because of abdominal pain, nausea, and one episode of vomiting.
At the time of consultation, abd pain persists and he has mod midgastric and LUQ tenderness. No n/v, loose stools since yesterday. Patient remains afebrile. CT represents findings of acute pancreatitis superimposed on chronic changes. No evidence
for focal collection to suggest abscess or developing pseudocyst at this time. Elevated lipase and mild leukocytosis.
Recommendations:
- Keep NPO
- Continue supportive care, IVF
- Pt is receiving Dilaudid every 3hrs which seems to be adequate in managing pain
-
-
Thank you for consultation and allowing me to participate in the patient's care. Please call the termite control servicer GI physician during the after hours with any questions or concerns.
[2024-04-29 10:44] VITALS: BMI 22.3
[2024-04-29 10:58] LABS: Lipase 1461 U/L (23-300)
--- NOTE | 2024-04-29 11:27 | W.PN.HOSP.TC ---
Today's Communication/Plan
-
Monitor vital signs see plan
Pain control
Continue with fluids
N.p.o.
GI following
Assessment / Plan
Assessment / Plan
General: Well Developed, Well Nourished and No Apparent Distress
HEENT: NormoCephalic, Moist mucous membranes and Atraumatic
Respiratory: Clear
Cardiac: S1/S2 and Regular Rhythm; No Murmur or Rub
GI: Soft, Non Distended, Normal Bowel Sounds and Tender
Musculoskeletal: No Edema
Neuro: AO x 3 and Nonfocal/grossly intact
Psych: Calm
acute on chronic pancreatitis
-NPO
-fluids continued for hydration
-Lipase 3468; now down trending
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 Prominent varices in the upper abdomen, including within the wall of the fundus and body of the stomach.Subtle edema involving the
junction of the body and tail the pancreas, extending anteriorly, and likely represents findings of acute pancreatitis superimposed on chronic changes. No evidence for focal collection to suggest abscess or developing pseudocyst at this time.Two
nephroliths involving the right kidney.Moderate amount of stool within the colon, suggestive of constipation. Possible SVT.
-hxt of PD stenting removal
-LR 150cc/hr continued
-Toradol and Dilaudid prn for pain; patient is demanding for either GRINDER SET UP OPERATOR THREAD TOOL pump or increasing his Dilaudid pushes. Advised patient that we will not be able to increase any more pain management at this time as treatment currently is n.p.o. with
fluids. Discussed with GI and they agree with the plan. Patient does have previous hospitalization with opioid seeking behavior. He was advised to go to pain management which she is currently not following.
-Zofran prn for n/v
-GI following. GI wants patient to follow-up with his outpatient GI outpatient and likely will need to be put on anticoagulation
Laxatives
#depression
-duloxetine continued
#DVT prophylaxis
-Lovenox
#CODE status
-full code
I spent a total of 51 minutes with the patient or on the floor. More than 50% of this time involved counseling and coordination of care.
Anticipated Discharge: > 48 hours
Subjective/Interval History
-
Date of Service: April 29, 2024
complaining of pain but appears comfortable
Objective Data
-
Labs:
Laboratory Results
04/29/24
08:54
WBC 11.1 H
Hgb 14.0
Hct 40.4
Plt Count 225
Vital Signs:
Vital Signs
Temp Pulse Resp BP Pulse Ox
97.9 F 49 16 112/67 94
04/29/24 07:48 04/29/24 07:48 04/29/24 07:48 04/29/24 07:48 04/29/24 07:48
[2024-04-29] MEDS: TORADOL 15 MG IV ×2 (11:37→19:33)
[2024-04-29 11:44] VITALS: BP 134/95
[2024-04-29] MEDS: NICODERM TRANSDERMAL 21 MG TRANSDERM (13:13)
--- NOTE | 2024-04-29 13:45 | PTCARENOTE ---
Pt rang the [facility], when this nurse rounded the curtain, pt noted to be eating a sandwich and quickly stuffed it into his bedside dresser. When questioned about eating the sandwich, pt stated, ' yes I'm trying to get a little food'. Pt is to be NPO.
Pt requesting pain meds. Will pass this info onto Pt's nurse Robbie.
--- NOTE | 2024-04-29 14:07 | PTCARENOTE ---
Pt unhappy with amount of pain medication he is receiving. Gets 1mg IV dilaudid PRN Q3H but he says it wears off after 2 hours. Pt threatening to leave AMA. Spoke with pt and he agreed to stay and manage pain w/ Q3H dilaudid and toradol. Seen by
GI at bedside who was trying ask medical history questions but pt would not answer them, just wanted to talk about amount of Dilaudid he is getting. Pt at no point in any visible distress; CPOT score 0.
Pt roommate complained that pt was smoking in the bathroom. I confronted pt about this but he denies, despite heavy smoke smell in room. Pt obviously was smoking. Pt told smoking in the hospital is unacceptable and says he understands. Given new
nicoderm patch as he had removed his at some point.
Also, another nurse went into the room and saw pt eating a sandwich he had hidden in side dresser. Pt says he only took a small bite to see how it affected his stomach. Pt knows he is NPO status. Explained again NPO status and process of
increasing diet when appropriate.
[2024-04-29 14:54] VITALS: BP 105/71
--- NOTE | 2024-04-29 15:51 | CM ---
Patient states he lives alone in an apartment is independent with adl's and ambulation. No dme.
PCP Dr. Christianson
Pharmacy; [facility]
[2024-04-29] MEDS: LOVENOX 40 MG SC (17:31)
[2024-04-29] MEDS: COLACE 100 MG PO (22:12)
[2024-04-29 23:07] VITALS: BP 134/88
--- NOTE | 2024-04-30 00:48 | PTCARENOTE ---
Patients room smelling of smoke. Patient currently in bathroom. Security and nursing butter production supervisor notified. Patients belongings searched- cigarettes, vape pen, dispatcher automobile rental and pocket knife found. these belongings were placed in bag and labeled and
taken to security. Ashes on the toilet seat noted. Security also found peppers and lunch meat. Plan of care and no smoking policy reinforced
[2024-04-30] MEDS: TORADOL 15 MG IV ×2 (01:58→09:37)
[2024-04-30] MEDS: DILAUDID 1 MG IV ×2 (02:57→08:02)
[2024-04-30 07:00] VITALS: BP 120/85
[2024-04-30 07:47] LABS: % Basophils 0.4 % (0-2); % Eosinophils 3.6 % (0-6); % Immature Granulocytes 0.4 % (0-0.5); % Lymphocytes 27.5 % (20.5-51.1); % Monocytes 6.3 % (1.7-9.3); % Neutrophils 61.8 % (42.2-75.2); Absolute Eosinophils 0.3 10^3/uL (0-0.7); Absolute Lymphocytes 2.2 10^3/uL (1.2-3.4); Absolute Monocytes 0.5 10^3/uL (0.1-0.6); Hematocrit 37.8 % (39.0-52.0); Hemoglobin 13.1 g/dL (13.0-18.0); Mean Corp Hgb Conc. 34.7 g/dL (33.0-37.0); Mean Corpuscular Hgb 31.7 pg (27.0-31.0); Mean Corpuscular Volume 91.5 fL (80.0-94.0); Mean Platelet Volume 9.9 fL (7.4-10.4); Nucleated Red Blood Cells % 0 % (-); Platelet Count 228 10^3/uL (130-400); Red Blood Cell Count 4.13 10^6/uL (4.70-6.10); Red Cell Dist. Width 12.6 % (11.5-14.5); White Blood Cell Count 8.1 10^3/uL (4.8-10.8)
[2024-04-30] MEDS: NEURONTIN 600 MG PO (08:01)
[2024-04-30] MEDS: LR 1000 IV (08:01)
[2024-04-30] MEDS: CYMBALTA DELAYED RELEASE 30 MG PO (08:02)
[2024-04-30] MEDS: MIRALAX 17 GRAMS PO (08:02)
[2024-04-30] MEDS: NICODERM TRANSDERMAL 21 MG TRANSDERM (08:02)
[2024-04-30] MEDS: PROTONIX 40 MG PO (08:02)
[2024-04-30] MEDS: COLACE 100 MG PO (08:02)
--- NOTE | 2024-04-30 08:08 | W.PN.GI.CBS2 ---
Today's Communication / Plan
-
clear liquids and adv as tolerated
Assessment / Plan
-
Patient is a 39y M with PMH of chronic recurrent pancreatitis who is being followed by Dr. Baker at [place]. He is here because of abdominal pain, nausea, and one episode of vomiting.
At the time of consultation, abd pain persists and he has mod midgastric and LUQ tenderness. No n/v, loose stools since yesterday. Patient remains afebrile. CT represents findings of acute pancreatitis superimposed on chronic changes. No evidence
for focal collection to suggest abscess or developing pseudocyst at this time. Elevated lipase and mild leukocytosis.
A/P
chronic recurrent pancreatitis with chronic pain he has not really followed up with his GI or pain management recently as outpatient which I encouraged him to do.
Continue supportive care for now with IV fluids and he is already on adequate pain control but he keeps demanding for more narcotic medications and also demands a LIQUOR GALLERY OPERATOR pump which clearly he does not require currently he appears comfortable and does
not appear in distress.
He may be drug-seeking and I explained to patient that there is no indication for increasing opiate medications currently and he needs to be compliant with his outpatient follow-ups with his GI at [place] and pain management.
he is also on gabapentin for chronic pain
he may need celiac plexus block can f/u with his GI at [place] to discuss
Continue Creon
Also has constipation noted on imaging continue MiraLAX and Colace
Subjective
Subjective
Date of Service: April 30, 2024
Still complains of pain but he does have chronic pain. He is afebrile not tachycardic blood pressure stable labs are pending
Objective
Data Reviewed
Laboratory Data:
Laboratory Results
04/30/24 07:26
Laboratory Results
Total Bilirubin 0.2 mg/dl (0.2-1.3) 04/28/24 18:20
AST 22 U/L (17-59) 04/28/24 18:20
ALT 20 U/L (0-50) 04/28/24 18:20
Alkaline Phosphatase 65 U/L (38-126) 04/28/24 18:20
Lipase 1461 U/L (23-300) H* 04/29/24 08:54
Vital Signs and I&O:
Vital Signs
Temp Pulse Resp BP Pulse Ox
98.0 F 66 18 134/88 98
04/29/24 23:07 04/29/24 23:07 04/29/24 23:07 04/29/24 23:07 04/29/24 23:07
I&O
04/29/24 04/30/24 05/01/24
06:59 06:59 06:59
Intake Total 1800 / 1800
Balance 1800 / 1800
Physical Exam
Physical Exam
Cardiology: Normal Sinus Rhythm
Pulmonary: Clear
GI: Soft, Non Distended and Tender (epigastric but also c/o generalized pain)
[2024-04-30 08:37] LABS: ALT (SGPT) 16 U/L (0-50); AST (SGOT) 20 U/L (17-59); Albumin 3.5 g/dl (3.5-5.0); Alkaline Phosphatase 53 U/L (38-126); Blood Urea Nitrogen 19 mg/dl (9-20); Calcium 9.2 mg/dl (8.4-10.2); Carbon Dioxide 26 mmol/L (22-30); Chloride 106 mmol/L (98-107); Estimated Creatinine Clearance 105 ml/min; Glucose 111 mg/dl (70-99); Lipase 629 U/L (23-300); Potassium 4.7 mmol/L (3.5-5.1); Sodium 138 mmol/L (135-145); Total Bilirubin 0.2 mg/dl (0.2-1.3); Total Protein 5.7 g/dl (6.3-8.2); eGFR > 60.00
[2024-04-30] MEDS: LR IV (09:27)
--- NOTE | 2024-04-30 10:25 | PTCARENOTE ---
pt requesting to be discharged with pain medicine. states he feels better and needs to go get his children from school today. DR Rucker made aware. pt told to order breakfast to see how he feels after eating. ivf running as ordered. pain meds
being given as ordered.
[2024-04-30 11:00] VITALS: BP 137/95
--- NOTE | 2024-04-30 11:01 | W.PN.HOSP.TC ---
Today's Communication/Plan
-
Monitor vital signs see plan
Discharge today
Time of discharge 37 minutes
Assessment / Plan
Assessment / Plan
General: Well Developed, Well Nourished and No Apparent Distress
HEENT: NormoCephalic, Moist mucous membranes and Atraumatic
Respiratory: Clear
Cardiac: S1/S2 and Regular Rhythm; No Murmur or Rub
GI: Soft, Non Distended, Normal Bowel Sounds and Tender
Musculoskeletal: No Edema
Neuro: AO x 3 and Nonfocal/grossly intact
Psych: Calm
acute on chronic pancreatitis
Patient tolerated sandwich overnight which was brought by his girlfriend. Currently on clears. Can be transition to low-fat diet. Discharge today. Patient was also found smoking in the bathroom. Security was alerted
-fluids continued for hydration
-Lipase 3468; now down trending
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 Prominent varices in the upper abdomen, including within the wall of the fundus and body of the stomach.Subtle edema involving the
junction of the body and tail the pancreas, extending anteriorly, and likely represents findings of acute pancreatitis superimposed on chronic changes. No evidence for focal collection to suggest abscess or developing pseudocyst at this time.Two
nephroliths involving the right kidney.Moderate amount of stool within the colon, suggestive of constipation. Possible SVT.
-hxt of PD stenting removal
-LR 150cc/hr continued
-Toradol and Dilaudid prn for pain; patient is demanding for either SENIOR SCIENTIST pump or increasing his Dilaudid pushes. Advised patient that we will not be able to increase any more pain management at this time as treatment currently is n.p.o. with
fluids. Discussed with GI and they agree with the plan. Patient does have previous hospitalization with opioid seeking behavior. He was advised to go to pain management which she is currently not following.
PDMP reviewed, on discharge will prescribe few pills of narcotics and rest will follow-up outpatient.
-Zofran prn for n/v
-GI following. GI wants patient to follow-up with his outpatient GI outpatient and likely will need to be put on anticoagulation
Laxatives
#depression
-duloxetine continued
#DVT prophylaxis
-Lovenox
#CODE status
-full code
Anticipated Discharge: Today
Subjective/Interval History
-
Date of Service: April 30, 2024
Patient had sandwich last night which was brought by his girlfriend
Objective Data
-
Labs:
Laboratory Results
04/30/24
07:26
WBC 8.1
Hgb 13.1
Hct 37.8 L
Plt Count 228
Sodium 138
Potassium 4.7
Chloride 106
Carbon Dioxide 26
BUN 19
Creatinine 0.9
Glucose 111 H
Calcium 9.2
Total Bilirubin 0.2
AST 20
ALT 16
Alkaline Phosphatase 53
Vital Signs:
Vital Signs
Temp Pulse Resp BP Pulse Ox
97.9 F 58 18 120/85 97
04/30/24 07:00 04/30/24 07:00 04/30/24 07:00 04/30/24 07:00 04/30/24 07:00
I&O
04/29/24 04/30/24 05/01/24
06:59 06:59 06:59
Intake Total 1800 / 1800
Balance 1800 / 1800
--- NOTE | 2024-04-30 12:03 | CM ---
MD entered order for discharge.
Spoke with pt he said he will drive himself home.
Offered VN he declined need .
He said he will follow up with PCP .
PLAN Home no needs
--- NOTE | 2024-04-30 13:14 | W.DCSUMMARY ---
Discharge Summary
Discharge Data
Date of Admission: 04/28/24
Date of Discharge: 04/30/24
-
Pending Results: No
Hospital Course
39-year-old male with past medical history of pancreatitis, depression, opioid dependency came to the hospital with acute on chronic pancreatitis. Patient lipase was significantly elevated on admission which over time was downtrending. CT scan was
consistent with pancreatitis along with possible splenic vein thrombosis. Gastroenterology here recommended patient to follow-up with his own outpatient gastroenterology for further management. Patient did not show opioid seeking behavior and was
asking for aggressive pain management multiple times even though he was comfortable. Once his lipase started to downtrend and he was able to tolerate diet, he was then discharged home with instructions to follow-up with all his physicians
outpatient.
Discharge Plan
-
Patient Disposition: Home (Routine Discharge)
Discharge Diagnosis/Procedures: Acute pancreatitis
Diet: Low Fat
Activity: As tolerated
Driving Restrictions: As prior to admission
Bathing Restrictions: None
Activity Restrictions/Additional Instructions:
Please follow-up with your flight communications officer outpatient
Referrals:
Kim Christianson MD [Family Provider] - in less than 1 week
Prescriptions:
New
polyethylene glycol 3350 [HealthyLax] 17 gram Powder In Packet
17 g PO DAILY Qty: 30 0RF
pantoprazole 40 mg Tablet,Delayed Release (Dr/Ec)
40 mg PO DAILY Qty: 30 0RF
nicotine 21 mg/24 hr Patch 24 Hour
21 mg transdermal DAILY Qty: 30 0RF
docusate sodium 100 mg Capsule
100 mg PO BID Qty: 60 0RF
oxycodone-acetaminophen [Percocet] 5-325 mg tablet
1 tab PO Q6H PRN (Reason: Pain) Qty: 10 0RF
Continued
gabapentin 600 mg tablet
600 mg PO TID
Creon 6,000-19,000 -30,000 unit capsule,delayed release(DR/EC)
2 cap PO AC PRN (Reason: with fatty meal )
acetaminophen [Tylenol Extra Strength] 500 mg Tablet
1,000 mg PO Q6HPRN PRN (Reason: mild pain)
duloxetine 30 mg Capsule,Delayed Release(Dr/Ec)
30 mg PO DAILY
Discharge Orders:
Discharge Patient (As Directed); Ordered 04/30/24
Ordered By: Kevan Ruckre
Discharge Date and Time
Discharge Date/Time: 04/30/24 11:43
Print Language: SAMOAN
== END 2024-04-30 11:43 | disposition home or self-care (01) | DRG 439 ==
LOC: 4 WEST ACU 22:33
PROVIDERS: Physician Assistant; Registered Nurse; ADMITTING PHYSICIAN Hospitalist; ATTENDING PHYSICIAN Internal Medicine; CONSULT PHYSICIAN Internal Medicine Gastroenterology; EMERGENCY PHYSICIAN Emergency Medicine; FAMILY PHYSICIAN Family Medicine
DX: K85.91 Acute pancreatitis with uninfected necrosis, unspecified (principal); F11.20 Opioid dependence, uncomplicated; I82.890 Acute embolism and thrombosis of other specified veins; F32.A Depression, unspecified; K86.1 Other chronic pancreatitis; E78.5 Hyperlipidemia, unspecified; F17.210 Nicotine dependence, cigarettes, uncomplicated; F41.9 Anxiety disorder, unspecified; Z79.899 Other long term (current) drug therapy
CPT/HCPCS: 74177; 80053; 82962; 83690; 85025; 85027; 96361; 96374; 99285; 99406; Q9967

== ENCOUNTER 2024-06-21 09:38 | Inpatient (IN) | payer OTHER, SELFPAY ==
[2024-06-21] VITALS (13 sets, daily range): BP systolic 93–134; BP diastolic 62–95; BMI 23.2; BMI 23.6
[2024-06-21 05:25] LABS: % Basophils 0.9 % (0-2); % Eosinophils 6.7 % (0-6); % Immature Granulocytes 0.5 % (0-0.5); % Lymphocytes 31.8 % (20.5-51.1); % Neutrophils 53.1 % (42.2-75.2); Absolute Basophils 0.1 10^3/uL (0-0.2); Absolute Eosinophils 0.6 10^3/uL (0-0.7); Absolute Immature Granulocytes 0.1 10^3/uL (0-0.05); Absolute Lymphocytes 3.1 10^3/uL (1.2-3.4); Absolute Monocytes 0.7 10^3/uL (0.1-0.6); Absolute Neutrophils 5.1 10^3/uL (1.4-6.5); Hematocrit 40.4 % (39.0-52.0); Hemoglobin 14.3 g/dL (13.0-18.0); Mean Corp Hgb Conc. 35.4 g/dL (33.0-37.0); Mean Corpuscular Hgb 32.4 pg (27.0-31.0); Mean Corpuscular Volume 91.4 fL (80.0-94.0); Mean Platelet Volume 9.1 fL (7.4-10.4); Nucleated Red Blood Cells % 0 % (-); Platelet Count 265 10^3/uL (130-400); Red Blood Cell Count 4.42 10^6/uL (4.70-6.10); Red Cell Dist. Width 12.6 % (11.5-14.5); White Blood Cell Count 9.6 10^3/uL (4.8-10.8)
[2024-06-21 05:48] LABS: ALT (SGPT) 19 U/L (0-50); AST (SGOT) 19 U/L (17-59); Albumin 4.3 g/dl (3.5-5.0); Alkaline Phosphatase 47 U/L (38-126); Blood Urea Nitrogen 20 mg/dl (9-20); Calcium 9.5 mg/dl (8.4-10.2); Carbon Dioxide 24 mmol/L (22-30); Chloride 106 mmol/L (98-107); Estimated Creatinine Clearance 122 ml/min; Glucose 105 mg/dl (70-99); Potassium 4.6 mmol/L (3.5-5.1); Sodium 139 mmol/L (135-145); Total Bilirubin 0.1 mg/dl (0.2-1.3); Total Protein 6.8 g/dl (6.3-8.2); eGFR > 60.00
[2024-06-21 06:02] LABS: Lipase > 4000 U/L (23-300)
--- NOTE | 2024-06-21 06:28 | ED.GENMED ---
History of Present Illness
General
Chief Complaint: Abdominal Pain
Source: patient
Exam Limitations: none
Time Seen by Provider: 06/21/24 06:08
History of Present Illness
History of Present Illness:
39-year-old male with a history of chronic recurring pancreatitis presents with abdominal pain nausea vomiting. Started late last evening. No precipitating event. Pain is moderate to severe in nature. Describes it mostly as the left upper
quadrant. Minimal radiation to the back. No fever.
Past History
Past History
ED Past Medical History: Other (Pancreatitis, pancreatic necrosis)
ED Past Surgical History: Other (Pancreatic stent)
Social History
Tobacco: Smoker
Alcohol: Former
Drug: None
Personal: Other
Living: with family
Employment: Other
Review of Systems
Review of Systems
All Other Systems: Not applicable
Constitutional: Denies fever or chills
Respiratory: Reports no symptoms
Cardiac: Reports no symptoms
Phy Exam
Physical Exam
Physical Exam:
GENERAL: Alert and oriented in no apparent distress.
EYE: Orbits normal.
NECK: Supple
CARDIAC: Regular rate and rhythm without any obvious murmurs.
LUNGS: Clear breath sounds,normal
ABDOMEN: Soft, bowel sounds present. No distention. Diffuse tenderness greatest in the left upper quadrant. Moderate nature. No rebound or guarding. No mass or hernia
NEUROLOGICAL: Alert and oriented , grossly non-focal
SKIN: Warm and dry, no rash or lesion, no discoloration, skin intact.
MUSCULOSKELETAL: No edema,no deformity.Good color
PSYCH: Normal and appropriate interaction.
Course
Orders/Labs/Results
Orders:
Orders
06/21/24 05:14
Complete Blood Count/With Diff Urgent
Comprehensive Metabolic Panel Urgent
Lipase Urgent
06/21/24 06:12
IV Insert/Care/Rem.- Treatment PRN
0.9% Sodium Chloride 1000 ml [Nss] 1,000 ml IV BOLUS
HYDROmorphone [Dilaudid] 1 mg IV NOW STA
Ondansetron Injectable [Zofran] 4 mg IV NOW STA
06/21/24 06:13
CT Abd/Pel (IV only)-DH only Urgent
Comment:
Reason For Exam: pancreattis
Abnormal Lab Results
06/21/24
05:14
RBC 4.42 L 10^6/uL
(4.70-6.10)
MCH 32.4 H pg
(27.0-31.0)
Abs Immat Gran (auto) 0.1 H 10^3/uL
(0-0.05)
Absolute Monos (auto) 0.7 H 10^3/uL
(0.1-0.6)
Eosinophils % 6.7 H %
(0-6)
Glucose 105 H mg/dl
(70-99)
Total Bilirubin 0.1 L mg/dl
(0.2-1.3)
Lipase > 4000 H* U/L
(23-300)
06/21/24 05:14
06/21/24 05:14
Vital Signs
Initial and Last Documented VS:
Initial Vital Signs
Temp Pulse Resp BP Pulse Ox
97.7 F 64 18 134/95 100
06/21/24 04:33 06/21/24 04:33 06/21/24 04:33 06/21/24 04:33 06/21/24 04:33
Last Documented Vital Signs
Temp Pulse Resp BP Pulse Ox
98.5 F 60 20 93/67 97
06/21/24 07:07 06/21/24 07:07 06/21/24 07:07 06/21/24 07:07 06/21/24 07:15
MDM/Problems Addressed
Differential Diagnosis Includes:
Patient with recurring pancreatitis. Lipase greater than 4000. With patient's peak previous pancreatic necrosis feel repeat CT scan needs to be done. Fluids pain management. Will require admission
*Radiology
Radiology exam reviewed: radiology read reviewed (Moderate stranding about the mid body of the pancreas. Thickening of the stomach. Acute interstitial edematous pancreatitis with pancreatic necrosis)
*Pulse Oximetry
Patient hypoxic: no
*Can Cleaner Interpretation
Rate: bradycardiac
Interpretation: normal
Heart Rate: 56
Rhythm: sinus
*Critical Care Note
Total Time (30-74mins, 75-104mins- exclusive of procedures): Not Applicable
Data Reviewed
Review of Other/Old Records Reveals: Labs, Records, Radiology Studies, Testing, Progress Notes and Discharge Summary
ED Attending Note
-
Portions of this chart may have been created with voice recognition software.� Occasional wrong word or��sound alike� substitutions may have occurred due to the inherent limitations of voice recognition software.
Discharge Plan
Departure
Patient Disposition: Admit
Date of Disposition: 06/21/24
Time of Disposition: 06:42
Presentation/result/management discussed w/ accepting MD/DO: Hospitalist
Discharge Problem:
Acute on chronic pancreatitis
Prescriptions:
No Action
gabapentin 600 mg tablet
600 mg PO TID
Creon 6,000-19,000 -30,000 unit capsule,delayed release(DR/EC)
2 cap PO AC PRN (Reason: with fatty meal )
acetaminophen [Tylenol Extra Strength] 500 mg Tablet
1,000 mg PO Q6HPRN PRN (Reason: mild pain)
duloxetine 30 mg Capsule,Delayed Release(Dr/Ec)
30 mg PO DAILY
polyethylene glycol 3350 [HealthyLax] 17 gram Powder In Packet
17 g PO DAILY Qty: 30 0RF
pantoprazole 40 mg Tablet,Delayed Release (Dr/Ec)
40 mg PO DAILY Qty: 30 0RF
nicotine 21 mg/24 hr Patch 24 Hour
21 mg transdermal DAILY Qty: 30 0RF
docusate sodium 100 mg Capsule
100 mg PO BID Qty: 60 0RF
Referrals:
PRIVATE,PHYSICIAN [Family Provider] -
Interventions
Interventions:
*Risk Screen - Suicide Last Done: 06/21/24 04:33
*General Assessment Last Done: 06/21/24 04:33
*Neglect/Abuse Screening Last Done: 06/21/24 04:33
ED- Fall Risk Assessment Last Done: 06/21/24 07:07
*ED COVID-19 Vaccine History Last Done: 06/21/24 07:07
OF-Nscrid-Mrplnczbmi Assessment Last Done: 06/21/24 07:07
Discharge Date and Time
Print Language: GHANAIAN
[2024-06-21] MEDS: NSS 1000 IV ×2 (06:29→08:56)
[2024-06-21] MEDS: DILAUDID 1 MG IV ×5 (06:30→21:31)
[2024-06-21] MEDS: ZOFRAN 4 MG IV (06:30)
--- NOTE | 2024-06-21 07:03 | EDRN ---
the pt was brought back from CT scan, the pt is resting in stretcher in the lowest position, side rails up x2, call conway within reach, HOB elevated, no s/s of distress, the pt appears to be relaxed and comfortable, will continue to monitor the pt
closely
--- NOTE | 2024-06-21 07:10 | EDRN ---
the pt pressed the call conway and this RN entered the pts room, the pt stated to this RN, 'I need more pain mediation, the 1mg of Dilaudid they gave me is not enough, i need 2mg of Dilaudid', this RN explained to the pt that he just received Dilaudid
1mg at 06:30 and that his blood pressure is on the softer side at 93/67 (76), this RN asked the pt what his pain level was at this time, the pt stated that his pain was at a 9/10, the pt stated, 'It is severe', the pt appears comfortable, HR in the
50-60's, this RN notified Dr. Díaz, no new orders received, the pt is resting in stretcher in the lowest position, side rails up x2, call conway within reach, HOB elevated, no s/s of distress, will continue to monitor the pt closely
--- NOTE | 2024-06-21 07:23 | EDRN ---
per Dr. Díaz the pt is not to have more pain medication at this time, will continue to monitor the pt and assess his pain
--- NOTE | 2024-06-21 08:16 | EDRN ---
the pt pressed the call conway and this RN entered the pts room, the pt stated, 'I need more pain medication, i want Dilaudid 2-3mg every 3 hours for this pain', the pt appears to be comfortable and in no distress, the pt is not grimacing and appears
calm, the pts HR is 52bpm, last BP 100/81 (88), this RN notified Dr. Díaz, no new orders were received, the pt is resting in stretcher in the lowest position, side rails up x2, call conway within reach, HOB elevated, no s/s of distress, will continue
to monitor the pt closely
--- NOTE | 2024-06-21 08:21 | EDRN ---
the pt pressed the call conway and this RN entered the pts room, the pt stated to this RN, 'I want 2mg of Dilaudid immediately, i need you to go get it right now, my pain is excruciating 08/25 pain', this RN notified Dr. Díaz and per the provider 1mg
IV Dilaudid will be ordered
--- NOTE | 2024-06-21 08:25 | HPS.HSE ---
Family Physician
-
Family Physician: PHYSICIAN PRIVATE
Chief Complaint
-
Abdominal pain
History of Present Illness
39 years old male with chronic pain syndrome, chronic recurrent pancreatitis presented with abdominal pain. Patient started his pain worsened after running out of his pain medications. He reported nausea vomiting. No nausea vomiting reported in
the hospital. He described his pain as severe. Patient requested Dilaudid for pain control. Has history of previous admissions for same problem
Medical History
Past Medical History
Past Medical History: Reports Other (Narcotic use, history of pancreatitis)
Past Surgical History: Reports Other (No recent major surgery)
Social History
Tobacco: Smoker
Alcohol: None
Drug: Narcotics
Personal: Single
Living: Alone
Family History
Family History: Not pertinent
Allergies / Home Medications
Allergies reflects when Allergies were last updated in [facility].
Home Medications with original date entered in [facility]
Allergy/Medication List:
Allergies
Allergy/AdvReac Type Severity Reaction Status Date / Time
No Known Allergies Allergy Verified 04/28/24 17:07
Home Medications
gabapentin 600 mg tablet 600 mg PO TID Neurological Condition 06/04/23
nfckhz-gfwzzjtj-fvgbukk 6,000-19,000-30,000 unit capsule,delayed rel (Creon) 2 cap PO AC PRN with fatty meal 10/16/23
acetaminophen 500 mg tablet (Tylenol Extra Strength) 1,000 mg PO Q6HPRN PRN mild pain 04/28/24
duloxetine 30 mg capsule,delayed release 30 mg PO DAILY depression/pain 04/28/24
docusate sodium 100 mg capsule 100 mg PO BID #60 caps 04/30/24
nicotine 21 mg/24 hr daily transdermal patch 21 mg transdermal DAILY #30 ea 04/30/24
pantoprazole 40 mg tablet,delayed release 40 mg PO DAILY #30 tabs 04/30/24
polyethylene glycol 3350 17 gram oral powder packet (HealthyLax) 17 g PO DAILY #30 ea 04/30/24
Review of Systems
-
History Source: Patient
A 12 point ROS was completed and negative except as noted: Yes
Constitutional: Denies Fever or Chills
EENT: Denies Sore Throat
Respiratory: Denies Cough
Cardiac: Denies Chest Pain
Abdomen/GI: Reports Abdominal Pain
: Denies Frequency
Musculoskeletal: Denies Joint Swelling
Neurological: Denies Headache or Numbness
Endocrine: Denies Temp Intolerance
Hematologic/Lymphatic: Denies Bruising
Psych: Denies Panic Disorder
Physical Exam
Vital Signs
Vital Signs
Temp Pulse Resp BP Pulse Ox
98.5 F 53 16 100/80 99
06/21/24 07:07 06/21/24 08:10 06/21/24 08:10 06/21/24 08:10 06/21/24 08:15
Physical Exam
General: No Apparent Distress and Comfortable
HEENT: Moist mucous membranes and Atraumatic
Respiratory: Clear
Cardiac: S1/S2
GI: Soft, Non Distended and Tender (Reports tenderness in the upper abdomen but was able to move and bend without discomfort )
Genito-urinary: No costovertebral tender; No Bloody Urine
Musculoskeletal: No Clubbing, No Cyanosis and No Edema
Neuro: AO x 3 and Nonfocal/grossly intact; No Slurred Speech, Facial Droop or Tremors
Psych: Calm
Laboratory Results
-
06/21/24 05:14
06/21/24 05:14
Laboratory Results
Total Bilirubin 0.1 mg/dl (0.2-1.3) L 06/21/24 05:14
AST 19 U/L (17-59) 06/21/24 05:14
ALT 19 U/L (0-50) 06/21/24 05:14
Alkaline Phosphatase 47 U/L (38-126) 06/21/24 05:14
Lipase > 4000 U/L (23-300) H* 06/21/24 05:14
Impression/Plan
-
39 male presented with abdominal pain
# acute on chronic pancreatitis
-CT showing Acute on chronic pancreatitis with a region of necrosis again involving the body and proximal tail of the pancreas. No loculated peripancreatic fluid collection. 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
upper quadrant.
-hxt of PD stenting removal
Lipase > 4000 on admission
No fevers, no leukocytosis, not toxic appearing
_ will do hydration with RL
Currently, pt does not seem in distress, moving around/ walking in room without discomfort, he has received IV Dilaudid. He said he did not run out of pain medications at home.
Will do oral oxycodone for now, PRN V Dilaudid only ( he was informed that he high doses of Dilaudid was unsafe)
-Zofran and Reglan prn for n/v
-GI consult
# History of opioid use
Patient signed AMA at one time
He understands that his safety is a priority and he should be able to tolerate pain. We can not push high doses of narcotics.
#Depression
No changes intended.
-duloxetine continued
# Tobacco use
Nicotine patch
#DVT prophylaxis
SQ Heparin
#CODE status
-full code
Total time spent to see the patient, examine the patient on the floor, review data and lab results, discuss treatment plan with patient, ER doctor, nursing staff around 75 minutes
--- NOTE | 2024-06-21 08:45 | EDRN ---
the pt refused the 1mg of Dilaudid and asked to speak to the doctor, the pt stated, 'I want Dilaudid and it needs to be 2mg IV every 2 to 3 hours', this RN notified Dr. Díaz
--- NOTE | 2024-06-21 08:55 | EDRN ---
Dr. Díaz at the pts bedside speaking with the pt
--- NOTE | 2024-06-21 09:04 | EDRN ---
this RN entered the pts room and spoke to the pt after Dr. Díaz spoke to the pt in regards to pain medication, the pt is agreeable to take 1mg Dilaudid IV, this RN also notified the pt that he would be receiving NSS 1000cc IVF Bolus, this RN
noticed that the pts room smelled like smoke, this RN asked the pt if he was smoking in the room, the pt stated that he was not, this RN asked the pt if he had cigarettes with him, the pt stated that he did, this RN educated the pt on the hospitals
smoking policy and the pt stated that he understood, the pt is resting in stretcher in the lowest position, side rails up x2, call conway within reach, HOB elevated, will continue to monitor the pt closely
--- NOTE | 2024-06-21 09:38 | EDRN ---
hospitalist currently at the pts bedside speaking with the pt
--- NOTE | 2024-06-21 09:55 | EDRN ---
this RN called the receiving unit and notified them that paper report was going to be tubed up, the pt is resting in stretcher in the lowest position, side rails up x1, HOB elevated, call conway within reach, no s/s of distress, the pt appears calm
and comfortable, this RN asked the pt if he could change into the gown before he went up to the 4th floor and the pt stated, 'I don't need to change into a gown, i can stay in my clothes there is no reason for that', will continue to monitor the pt
closely
--- NOTE | 2024-06-21 10:07 | EDRN ---
the equal opportunity representative from the 4th floor called and stated that the charge nurse on the 4th floor would want the pts cigarettes taken away due to the pt having a history of smoking in the hospital, this RN spoke to ED charge nurse and the hospitalist who
admitted the pt and all are in agreeance that the pts cigarettes and fire hazard inspector should be confiscated, this RN entered the pts room and upon entering the pts room the room smelled like smoke, this RN asked the pt if he had been smoking in the room and
the pt denied smoking in the room, this RN asked the pt why his room smelled like smoke and the pt stated, 'I don't know maybe you have bad smell', this RN notified the pt that his bag would need to be searched and that his cigarettes and fire hazard inspector
would need to be taken by security, the pt was agreeable to this, security was called and security came and searched the pts bag and confiscated the pts fire hazard inspector and cigarettes
[2024-06-21] MEDS: LR 1000 IV ×3 (10:59→21:40)
--- NOTE | 2024-06-21 11:00 | PTCARENOTE ---
Pt admitted into room 402-2, ambulated into room with steady gait. VSS. Pt reporting 6/10 L abd pain. Scheduled dose of oxycodone administered. Pt refusing nicotine patch at this time. Pt oriented to room and has call cnoway within reach.
[2024-06-21] MEDS: NSS (PRESERVATIVE FREE) 10 ML IV (11:03)
[2024-06-21] MEDS: ROXICODONE 5 MG PO ×3 (11:03→23:26)
[2024-06-21] MEDS: PROTONIX IV 40 MG IV (11:03)
--- NOTE | 2024-06-21 13:25 | PTCARENOTE ---
Pt received PRN dilaudid at 1315 for 10/10 abd pain. Pt reports feeling severe pain for an hour prior to when it was due and is requesting that dilaudid dose be increased as well as frequency. Per Dr. Dixon, pt agreed to this regimen upon admission
and it would not be adjusted at this time.
--- NOTE | 2024-06-21 13:45 | PTCARENOTE ---
Entered patient's room to find him eating a hoagie. When pt saw RN he quickly tried to hide food in the bedside cabinet. In the cabinet there were 2 other sandwiches, 2 donuts, soup and gatorade. Pt was made aware of NPO status prior to this and his
diet status was reiterated. Unopened food was taken out of room and placed in refrigerator with patient ID sticker. Dr. Dixon aware.
[2024-06-21] MEDS: TORADOL 15 MG IV (14:55)
--- NOTE | 2024-06-21 15:25 | CON.GI ---
Consultation
-
Date/Time Consultation Requested: 06/21/2024
Date/Time Consultation Performed: 06/21/24
Requesting Provider: Dr. Dixon
Performing Provider: Dr. Muse
Reason for Consultation: acute on chronic pancreatitis
Medical History
Chief Complaint / HPI
Chief Complaint: pain
History of Present Illness:
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 States he
has chronic pain. Does not follow with a specific chronic pain doctor and sounds like has had difficulty keeping 1. He follows with Dr. Baker at [facility] and has a history of necrotizing pancreatitis with multiple hospitalizations for chronic
pain and recurrent pancreatitis. 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 States he has had worsening pain and is hyperfocused on the amount of pain medication he is
receiving or not receiving. He describes his pain as severe yet he appears pretty comfortable. Asking for 2 mg of Dilaudid every 3 hours
Past Medical History
Past Medical History: Other (Acute on chronic pancreatitis, necrotizing pancreatitis)
Past Surgical History: Other (Pancreatic stenting)
Social History
Tobacco: Smoker
Alcohol: Former
Drug: Marijuana
Allergies / Home Medications
Allergy/AdvReac Type Severity Reaction Status Date / Time
No Known Allergies Allergy Verified 04/28/24 17:07
�Medication �Instructions �Recorded
gabapentin 600 mg tablet 600 mg PO TID Neurological 06/04/23
Condition
gvzczc-ftflstsy-nxzzcju 2 cap PO AC PRN with fatty meal 10/16/23
6,000-19,000-30,000 unit
capsule,delayed rel (Creon)
acetaminophen 500 mg tablet 1,000 mg PO Q6HPRN PRN mild pain 04/28/24
(Tylenol Extra Strength)
duloxetine 30 mg capsule,delayed 30 mg PO DAILY depression/pain 04/28/24
release
docusate sodium 100 mg capsule 100 mg PO BID #60 caps 04/30/24
nicotine 21 mg/24 hr daily 21 mg transdermal DAILY #30 ea 04/30/24
transdermal patch
pantoprazole 40 mg tablet,delayed 40 mg PO DAILY #30 tabs 04/30/24
release
polyethylene glycol 3350 17 gram 17 g PO DAILY #30 ea 04/30/24
oral powder packet (HealthyLax)
Review of Systems
-
History Source: Patient
All other systems: A 12 pt ROS was Negative except as stated above in HPI
Vital Signs
Temp Pulse Resp BP Pulse Ox
98.1 F 66 18 106/63 97
06/21/24 15:05 06/21/24 15:05 06/21/24 15:05 06/21/24 15:05 06/21/24 15:05
Physical Exam
Exam
General: No Apparent Distress
HEENT: Anicteric
Cardiac: S1/S2
GI: Soft and Tender
Neuro: AO x 3
Psych: Calm
Results
WBC 9.6 10^3/uL (4.8-10.8) 06/21/24 05:14
Hgb 14.3 g/dL (13.0-18.0) 06/21/24 05:14
Hct 40.4 % (39.0-52.0) 06/21/24 05:14
MCV 91.4 fL (80.0-94.0) 06/21/24 05:14
Plt Count 265 10^3/uL (130-400) 06/21/24 05:14
Absolute Neuts (auto) 5.1 10^3/uL (1.4-6.5) 06/21/24 05:14
Sodium 139 mmol/L (135-145) 06/21/24 05:14
Potassium 4.6 mmol/L (3.5-5.1) 06/21/24 05:14
Chloride 106 mmol/L (98-107) 06/21/24 05:14
Carbon Dioxide 24 mmol/L (22-30) 06/21/24 05:14
BUN 20 mg/dl (9-20) 06/21/24 05:14
Creatinine 0.8 mg/dL (0.7-1.3) 06/21/24 05:14
Calcium 9.5 mg/dl (8.4-10.2) 06/21/24 05:14
Total Bilirubin 0.1 mg/dl (0.2-1.3) L 06/21/24 05:14
AST 19 U/L (17-59) 06/21/24 05:14
ALT 19 U/L (0-50) 06/21/24 05:14
Alkaline Phosphatase 47 U/L (38-126) 06/21/24 05:14
Lipase > 4000 U/L (23-300) H* 06/21/24 05:14
Diagnostic Image Results:
CT abdomen and pelvis 06/21/2024 with IV contrast showing similar thinning and decreased enhancement of the body and proximal tail compatible with pancreatic necrosis with coarse calcification in the tail with peripancreatic inflammatory fat
stranding and minor ascites. Stable chronic splenic vein thrombosis with prominent varices in the left upper quadrant especially at the gastric fundus.
Prior GI Procedures:
EGD:
Colonoscopy:
Assessment / Plan
-
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
#Acute on chronic pancreatitis with alcohol cessation years ago who continues to smoke cigarettes and marijuana
---No leukocytosis, normal BUN at 20, creatinine 0.8, lipase greater than 4000, normal ALT total bilirubin and alkaline phosphatase.
���No loculated peripancreatic fluid collection
���Patient is requesting higher doses of Dilaudid despite looking comfortable
--- Definite narcotic seeking behaviors
--Would alternate Toradol with narcotics
--- Patient likely needs rehab. These are difficult situations as every time he comes to the hospital he gets narcotics and being in so many hospitals his tolerance is increasing and is needed for more is growing
--- I told him to follow-up with Dr. Gastelum and pain management outpatient -consider celiac plexus block
-- ok for low fat diet if no n/v
Data Reviewed
-
CT Scan: Report Reviewed by me
Old Records: Reviewed
-
-
Thank you for consultation and allowing me to participate in the patient's care. Please call the plant protection officer GI physician during the after hours with any questions or concerns.
[2024-06-21] MEDS: NEURONTIN 600 MG PO ×2 (17:24→21:32)
[2024-06-22] MEDS: DILAUDID 1 MG IV ×2 (01:43→06:37)
[2024-06-22] MEDS: LR 1000 IV (05:02)
[2024-06-22] MEDS: ROXICODONE 5 MG PO (05:03)
[2024-06-22] MEDS: TORADOL 15 MG IV (05:08)
--- NOTE | 2024-06-22 06:00 | PTCARENOTE ---
Upon entering the room, RN found pt's IV line disconnected. RN educated pt on the need for IV fluids and pt remains noncompliant.
[2024-06-22 07:30] VITALS: BP 107/69
[2024-06-22] MEDS: LR IV (08:06)
[2024-06-22 08:35] LABS: Hemoglobin 12.9 g/dL (13.0-18.0); Mean Corp Hgb Conc. 34.9 g/dL (33.0-37.0); Mean Corpuscular Hgb 33.2 pg (27.0-31.0); Mean Corpuscular Volume 95.4 fL (80.0-94.0); Mean Platelet Volume 9.6 fL (7.4-10.4); Platelet Count 201 10^3/uL (130-400); Red Blood Cell Count 3.88 10^6/uL (4.70-6.10); Red Cell Dist. Width 12.5 % (11.5-14.5); White Blood Cell Count 8.7 10^3/uL (4.8-10.8)
[2024-06-22 08:59] LABS: ALT (SGPT) 16 U/L (0-50); AST (SGOT) 18 U/L (17-59); Albumin 3.5 g/dl (3.5-5.0); Alkaline Phosphatase 37 U/L (38-126); Blood Urea Nitrogen 16 mg/dl (9-20); Calcium 8.6 mg/dl (8.4-10.2); Carbon Dioxide 29 mmol/L (22-30); Chloride 105 mmol/L (98-107); Estimated Creatinine Clearance 122 ml/min; Glucose 99 mg/dl (70-99); Potassium 4.3 mmol/L (3.5-5.1); Sodium 140 mmol/L (135-145); Total Bilirubin 0.3 mg/dl (0.2-1.3); Total Protein 5.8 g/dl (6.3-8.2); eGFR > 60.00
[2024-06-22 09:06] LABS: Lipase > 4000 U/L (23-300)
--- NOTE | 2024-06-22 09:20 | W.DCSUMMARY ---
Discharge Summary
Discharge Data
Date of Admission: 06/21/24
Date of Discharge: 06/22/24
-
Pending Results: No
Hospital Course
Patient 39 years old male with history of chronic recurrent pancreatitis due to alcohol, chronic pain with opioid dependence, came into the hospital with abdominal pain and found to have acute on chronic pancreatitis. He was treated with fluids,
pain control, and diet management per GI. GI was consulted. I was not able to see the patient today since patient signed AGAINST MEDICAL ADVICE. He was alert and coherent and RN discussed with patient risks and benefits. By report he was doing
much better. By the time I was heading to see the patient he already left. I was unable to examine the patient either today.
Discharge Plan
-
Patient Disposition: Against Medical Advice
Referrals:
PRIVATE,PHYSICIAN [Family Provider] -
Prescriptions:
No Action
gabapentin 600 mg tablet
600 mg PO TID
Creon 6,000-19,000 -30,000 unit capsule,delayed release(DR/EC)
2 cap PO AC PRN (Reason: with fatty meal )
acetaminophen [Tylenol Extra Strength] 500 mg Tablet
1,000 mg PO Q6HPRN PRN (Reason: mild pain)
duloxetine 30 mg Capsule,Delayed Release(Dr/Ec)
30 mg PO DAILY
polyethylene glycol 3350 [HealthyLax] 17 gram Powder In Packet
17 g PO DAILY Qty: 30 0RF
pantoprazole 40 mg Tablet,Delayed Release (Dr/Ec)
40 mg PO DAILY Qty: 30 0RF
nicotine 21 mg/24 hr Patch 24 Hour
21 mg transdermal DAILY Qty: 30 0RF
docusate sodium 100 mg Capsule
100 mg PO BID Qty: 60 0RF
Discharge Date and Time
Discharge Date/Time: 06/22/24 10:01
Print Language: EAST [place]
--- NOTE | 2024-06-22 09:36 | PTCARENOTE ---
Addendum entered by Rohan Champion RN 06/22/24 09:40:
Pt has refused all AM medications and an assessment.
Original Note:
Pt asked to be discharged and stated ' I don't want to wait for a doctor. I feel so much better now and I have an emergency at my work.' was notified. AMA paperwork was provided. It was explained to this patient the consequences of leaving AMA.
--- NOTE | 2024-06-22 10:54 | CM ---
Alert awake oriented patient who lives alone in a 3 story home with 20 step to enter and 12 steps to bed and bathroom. He is independent in driving and in all activities of daily living.He was offered VN he declined need.He drove himself home.
No VN /No SNF hx
Pharmacy [facility]
PCP DR Christianson
PLAN Home Declined VN
== END 2024-06-22 10:01 | disposition left against medical advice (07) | DRG 439 ==
LOC: 4 EAST ACU 09:38
PROVIDERS: Emergency Medicine; ADMITTING PHYSICIAN Internal Medicine; ATTENDING PHYSICIAN Hospitalist; CONSULT PHYSICIAN Internal Medicine; EMERGENCY PHYSICIAN Emergency Medicine
DX: K85.90 Acute pancreatitis without necrosis or infection, unspecified (principal); F11.20 Opioid dependence, uncomplicated; I82.891 Chronic embolism and thrombosis of other specified veins; F17.210 Nicotine dependence, cigarettes, uncomplicated; K86.1 Other chronic pancreatitis; G89.4 Chronic pain syndrome; F32.A Depression, unspecified; Z76.5 Malingerer [conscious simulation]; Z53.29 Procedure and treatment not carried out because of patient's decision for other reasons; Z79.899 Other long term (current) drug therapy
CPT/HCPCS: 74177; 80053; 83690; 85025; 85027; 96361; 96374; 96375; 96376; 99285; 99406; Q9967

== ENCOUNTER 2024-08-02 04:49 | Emergency (ER) | payer OTHER, SELFPAY ==
[2024-08-02 04:49] VITALS: BMI 22.9
[2024-08-02 04:57] VITALS: BP 129/85
[2024-08-02 06:04] LABS: % Basophils 0.5 % (0-2); % Eosinophils 1.8 % (0-6); % Immature Granulocytes 0.5 % (0-0.5); % Lymphocytes 15.4 % (20.5-51.1); % Monocytes 6.9 % (1.7-9.3); % Neutrophils 74.9 % (42.2-75.2); Absolute Eosinophils 0.2 10^3/uL (0-0.7); Absolute Lymphocytes 1.3 10^3/uL (1.2-3.4); Absolute Monocytes 0.6 10^3/uL (0.1-0.6); Absolute Neutrophils 6.3 10^3/uL (1.4-6.5); Hematocrit 40.9 % (39.0-52.0); Hemoglobin 13.8 g/dL (13.0-18.0); Mean Corp Hgb Conc. 33.7 g/dL (33.0-37.0); Mean Corpuscular Hgb 32.2 pg (27.0-31.0); Mean Corpuscular Volume 95.3 fL (80.0-94.0); Mean Platelet Volume 9.3 fL (7.4-10.4); Nucleated Red Blood Cells % 0 % (-); Platelet Count 209 10^3/uL (130-400); Red Blood Cell Count 4.29 10^6/uL (4.70-6.10); Red Cell Dist. Width 12.2 % (11.5-14.5); White Blood Cell Count 8.4 10^3/uL (4.8-10.8)
[2024-08-02 06:12] LABS: ALT (SGPT) 22 U/L (0-50); AST (SGOT) 20 U/L (17-59); Albumin 4.3 g/dl (3.5-5.0); Alkaline Phosphatase 44 U/L (38-126); Blood Urea Nitrogen 21 mg/dl (9-20); Calcium 9.1 mg/dl (8.4-10.2); Carbon Dioxide 25 mmol/L (22-30); Chloride 107 mmol/L (98-107); Glucose 128 mg/dl (70-99); Potassium 4.6 mmol/L (3.5-5.1); Sodium 142 mmol/L (135-145); Total Bilirubin 0.2 mg/dl (0.2-1.3); Total Protein 6.7 g/dl (6.3-8.2); eGFR > 60.00
[2024-08-02 06:34] LABS: Lipase > 4000 U/L (23-300)
[2024-08-02] MEDS: DILAUDID 1 MG IV ×2 (06:44→07:56)
--- NOTE | 2024-08-02 06:44 | ED.GENMED ---
History of Present Illness
General
Chief Complaint: Abdominal Pain
Time Seen by Provider: 08/02/24 06:04
History of Present Illness
History of Present Illness:
39-year-old male with prior history of alcohol abuse and chronic necrotizing pancreatitis presenting for upper abdominal pain. Patient reports that he gets his pain every month, requiring hospitalization for pain medication. Patient reports that
he usually gets Dilaudid. Notes that he has not drank alcohol since 2018. Denies chest pain or difficulty breathing. Denies changes in stool. Notes nausea without vomiting. Denies any abdominal surgeries. He reports that he took Tylenol and
oxycodone prior to arrival without any improvement. Denies additional acute medical complaints
Past History
Past History
ED Past Medical History: Other (Pancreatitis, pancreatic necrosis)
ED Past Surgical History: Other (Pancreatic stent)
Social History
Tobacco: Smoker
Alcohol: Former
Drug: None
Personal: Other
Living: with family
Employment: Other
Phy Exam
Physical Exam
Physical Exam:
General: Well-appearing, no clinical signs of dehydration, nontoxic and in no acute distress
HEENT: protecting airway
Neck: appears supple
CV: Normal heart rate, regular rhythm
Resp: No accessory muscle use, no increased work of breathing, lungs clear to auscultation bilaterally
Abd: Soft and non-distended, generalized tenderness of the abdomen, most prominent in the left lower quadrant, no rebound or guarding
Extremities: No deformities, no swelling, no erythema
Neuro: alert, no focal neurologic deficit
: deferred
Rectal: deferred
Psych: Normal affect
Skin: Intact
Course
Orders/Labs/Results
Orders:
Orders
08/02/24 05:51
Complete Blood Count/With Diff Urgent
Comprehensive Metabolic Panel Urgent
Lipase Urgent
08/02/24 06:30
HYDROmorphone [Dilaudid] 1 mg IV NOW STA
08/02/24 06:43
CT Abd/pelvis W Iv Cont Urgent
Comment:
Reason For Exam: L-sided pain, hx of chronic pancreatitis
0.9% Sodium Chloride 1000 ml [Nss] 1,000 ml IV BOLUS
08/02/24 07:53
HYDROmorphone [Dilaudid] 1 mg IV NOW STA
Abnormal Lab Results
08/02/24
05:51
RBC 4.29 L 10^6/uL
(4.70-6.10)
MCV 95.3 H fL
(80.0-94.0)
MCH 32.2 H pg
(27.0-31.0)
Lymphocytes % 15.4 L %
(20.5-51.1)
BUN 21 H mg/dl
(9-20)
Glucose 128 H mg/dl
(70-99)
Lipase > 4000 H* U/L
(23-300)
08/02/24 05:51
08/02/24 05:51
Vital Signs
Initial and Last Documented VS:
Initial Vital Signs
Temp Pulse Resp BP Pulse Ox
98.4 F 81 18 129/85 98
08/02/24 04:57 08/02/24 04:57 08/02/24 04:57 08/02/24 04:57 08/02/24 04:57
Last Documented Vital Signs
Temp Pulse Resp BP Pulse Ox
98.4 F 81 18 111/86 98
08/02/24 04:57 08/02/24 04:57 08/02/24 04:57 08/02/24 07:49 08/02/24 07:50
MDM/Problems Addressed
MDM/Problems Addressed:
39-year-old male with history of prior alcohol abuse and chronic necrotizing pancreatitis presenting to the emergency department for abdominal pain. Vital signs on arrival are normal.
On exam patient is resting comfortably, no acute distress or extremis. Patient is requesting Dilaudid immediately upon my assessment. On prior review of EMR, patient has had frequent hospitalizations for similar symptoms, requiring narcotics.
Patient also with difficult behavior in the past, multiple AMA discharges. Do suspect the patient symptoms are from underlying pancreatitis, most recent hospitalization in June with a lipase greater than 4000. Patient otherwise nontoxic,
afebrile without concern for systemic infection. Will plan for laboratory analysis, fluids, pain control.
06:40 - Lipase again is over 4000. Will proceed with CT imaging at this time to ensure no complicating features to pancreatitis or additional acute intra-abdominal pathology. Dilaudid administered for pain
08:00 -CT without acute abnormality, continues to show evidence of acute on chronic pancreatitis. Patient is unsure whether or not he wants to stay in the hospital for social reasons.
09:00- patient does not want to stay in the hospital. He is requesting more Dilaudid, however explained that if he continues to need IV narcotics that he should stay in the hospital. Patient is requesting to go home. Patient is competent to make
his own decisions. Advise that he follow-up with a GI doctor. Return precautions discussed
*Critical Care Note
Total Time (30-74mins, 75-104mins- exclusive of procedures): Not Applicable
ED Attending Note
-
Portions of this chart may have been created with voice recognition software.� Occasional wrong word or��sound alike� substitutions may have occurred due to the inherent limitations of voice recognition software.
Discharge Plan
Departure
Prescriptions:
No Action
gabapentin 600 mg tablet
600 mg PO TID
Creon 6,000-19,000 -30,000 unit capsule,delayed release(DR/EC)
2 cap PO AC PRN (Reason: with fatty meal )
acetaminophen [Tylenol Extra Strength] 500 mg Tablet
1,000 mg PO Q6HPRN PRN (Reason: mild pain)
duloxetine 30 mg Capsule,Delayed Release(Dr/Ec)
30 mg PO DAILY
polyethylene glycol 3350 [HealthyLax] 17 gram Powder In Packet
17 g PO DAILY Qty: 30 0RF
pantoprazole 40 mg Tablet,Delayed Release (Dr/Ec)
40 mg PO DAILY Qty: 30 0RF
nicotine 21 mg/24 hr Patch 24 Hour
21 mg transdermal DAILY Qty: 30 0RF
docusate sodium 100 mg Capsule
100 mg PO BID Qty: 60 0RF
Referrals:
PRIVATE,PHYSICIAN [Family Provider] -
Interventions
Interventions:
*Risk Screen - Suicide Last Done: 08/02/24 04:57
*General Assessment Last Done: 08/02/24 04:57
*Neglect/Abuse Screening Last Done: 08/02/24 04:57
ED- Fall Risk Assessment Last Done: 08/02/24 05:02
*ED COVID-19 Vaccine History Last Done: 08/02/24 05:03
BF-Ppwdrk-Grpwiwtdhx Assessment Last Done: 08/02/24 05:35
Discharge Date and Time
Print Language: NEPALI
[2024-08-02] MEDS: NSS 1000 IV (06:45)
[2024-08-02 07:49] VITALS: BP 111/86
[2024-08-02 08:00] VITALS: BP 112/81
[2024-08-02 09:19] VITALS: BP 123/91
== END 2024-08-02 10:30 | disposition home or self-care (01) ==
LOC: EMR 04:49
PROVIDERS: Emergency Medicine; EMERGENCY PHYSICIAN Student in an Organized Health Care Education/Training Program
DX: K85.90 Acute pancreatitis without necrosis or infection, unspecified (principal); K86.1 Other chronic pancreatitis; F17.200 Nicotine dependence, unspecified, uncomplicated
CPT/HCPCS: 96374; 96376; 96361; 99284; 74177; 80053; 83690; 85025; Q9967

== ENCOUNTER 2024-08-20 01:03 | Emergency (ER) | payer OTHER, SELFPAY ==
[2024-08-20 01:06] VITALS: BP 121/84
--- NOTE | 2024-08-20 01:59 | ED.GENMED ---
History of Present Illness
General
Chief Complaint: Musculo-Skeletal Complaint
Source: patient
Exam Limitations: none
Time Seen by Provider: 08/20/24 01:21
History of Present Illness
History of Present Illness:
Patient hit his hand about a week ago but then had his hand squeeze today with increased pain. No other injury or complaint. He did take an oxycodone earlier today that he uses for his pancreas
Past History
Past History
ED Past Medical History: Other (Pancreatitis, pancreatic necrosis)
ED Past Surgical History: Other (Pancreatic stent)
Social History
Tobacco: Smoker
Alcohol: Former
Drug: None
Personal: Other
Living: with family
Employment: Other
Review of Systems
Review of Systems
All Other Systems: Not applicable
Phy Exam
Physical Exam
Physical Exam:
General: Nontoxic appearing in no distress
Skin: Warm and dry, no rash
Neuro: Alert, nontoxic, grossly nonfocal
Psychiatric: Good eye contact and appropriate
Musculoskeletal: Swelling left fifth metacarpal area. No open wound. No obvious deformity. No significant rotation of the fifth finger. Motor or sensory neurovascular intact.
Course
Orders/Labs/Results
Orders:
Orders
08/20/24 01:18
Hand, Right 3 View [CR Hand - Right Min 3 Views] Urgent
Comment:
Reason For Exam: injury to R lateral hand
08/20/24 01:58
Ulnar Gutter Left-Treatment ONCE
Ketorolac [Toradol] 60 mg IM NOW STA
Vital Signs
Initial and Last Documented VS:
Initial Vital Signs
Temp Pulse Resp BP Pulse Ox
98.2 F 90 14 121/84 98
08/20/24 01:06 08/20/24 01:06 08/20/24 01:06 08/20/24 01:06 08/20/24 01:06
Last Documented Vital Signs
Temp Pulse Resp BP Pulse Ox
98.2 F 90 14 121/84 98
08/20/24 01:06 08/20/24 01:06 08/20/24 01:06 08/20/24 01:06 08/20/24 01:06
MDM/Problems Addressed
Differential Diagnosis Includes:
Ulnar gutter splint and orthopedic follow-up with hand. This may require surgery. Patient was asking about pain management. He took oxycodone earlier that he has been using for his pancreas. I feel additional narcotics is not appropriate. Advil
or Motrin plus Tylenol. He was okay with this approach
*Radiology
Radiology exam reviewed: preliminary read by ED provider (Fifth metacarpal fracture)
*Pulse Oximetry
Patient hypoxic: no
*Critical Care Note
Total Time (30-74mins, 75-104mins- exclusive of procedures): Not Applicable
ED Attending Note
-
Portions of this chart may have been created with voice recognition software.� Occasional wrong word or��sound alike� substitutions may have occurred due to the inherent limitations of voice recognition software.
Discharge Plan
Departure
Patient Disposition: Home (Routine Discharge)
Date of Disposition: 08/20/24
Time of Disposition: 02:01
Patient with high blood pressure during this ER visit?: Yes
Discharge Problem:
Fracture left fifth metacarpal
Instructions: Hand Fracture ED, BLOOD PRESSURE
Prescriptions:
No Action
gabapentin 600 mg tablet
600 mg PO TID
Creon 6,000-19,000 -30,000 unit capsule,delayed release(DR/EC)
2 cap PO AC PRN (Reason: with fatty meal )
acetaminophen [Tylenol Extra Strength] 500 mg Tablet
1,000 mg PO Q6HPRN PRN (Reason: mild pain)
duloxetine 30 mg Capsule,Delayed Release(Dr/Ec)
30 mg PO DAILY
polyethylene glycol 3350 [HealthyLax] 17 gram Powder In Packet
17 g PO DAILY Qty: 30 0RF
pantoprazole 40 mg Tablet,Delayed Release (Dr/Ec)
40 mg PO DAILY Qty: 30 0RF
nicotine 21 mg/24 hr Patch 24 Hour
21 mg transdermal DAILY Qty: 30 0RF
docusate sodium 100 mg Capsule
100 mg PO BID Qty: 60 0RF
Referrals:
Ananda Ospina MD [Active] - Follow up in 2-3 days
Activity Restrictions/Additional Instructions:
Call the orthopedic group first thing in the morning
They will likely have you see one of the hand specialist in the next few days
This may require surgery. Make sure you follow-up with the specialist
Interventions
Interventions:
*Risk Screen - Suicide Last Done: 08/20/24 01:06
*General Assessment Last Done: 08/20/24 01:06
*Neglect/Abuse Screening Last Done: 08/20/24 01:06
ED- Fall Risk Assessment Last Done: 08/20/24 01:06
*ED COVID-19 Vaccine History Last Done: 08/20/24 01:06
Discharge Date and Time
Print Language: GE[place]GI[place]
[2024-08-20] MEDS: TORADOL 60 MG IM (02:06)
== END 2024-08-20 02:18 | disposition home or self-care (01) ==
LOC: EMR 01:03
PROVIDERS: EMERGENCY PHYSICIAN Emergency Medicine
DX: S62.396A Other fracture of fifth metacarpal bone, right hand, initial encounter for closed fracture (principal); W22.8XXA Striking against or struck by other objects, initial encounter; F17.200 Nicotine dependence, unspecified, uncomplicated
CPT/HCPCS: 29125; 99284; 96372; 73130

== ENCOUNTER 2025-03-07 01:08 | Inpatient (IN) | payer OTHER, SELFPAY ==
[2025-03-06 21:45] VITALS: BMI 24.0
[2025-03-06 21:51] VITALS: BP 133/87
[2025-03-06 22:45] LABS: % Basophils 0.5 % (0-2); % Eosinophils 1.2 % (0-6); % Immature Granulocytes 0.4 % (0-0.5); % Lymphocytes 16.8 % (20.5-51.1); % Monocytes 5.3 % (1.7-9.3); % Neutrophils 75.8 % (42.2-75.2); Absolute Basophils 0.1 10^3/uL (0-0.2); Absolute Eosinophils 0.2 10^3/uL (0-0.7); Absolute Immature Granulocytes 0.1 10^3/uL (0-0.05); Absolute Lymphocytes 2.2 10^3/uL (1.2-3.4); Absolute Monocytes 0.7 10^3/uL (0.1-0.6); Absolute Neutrophils 9.9 10^3/uL (1.4-6.5); Hematocrit 42.3 % (39.0-52.0); Hemoglobin 14.6 g/dL (13.0-18.0); Mean Corp Hgb Conc. 34.5 g/dL (33.0-37.0); Mean Corpuscular Hgb 32.2 pg (27.0-31.0); Mean Corpuscular Volume 93.2 fL (80.0-94.0); Mean Platelet Volume 9.4 fL (7.4-10.4); Nucleated Red Blood Cells % 0 % (-); Platelet Count 282 10^3/uL (130-400); Red Blood Cell Count 4.54 10^6/uL (4.70-6.10); Red Cell Dist. Width 13.3 % (11.5-14.5)
[2025-03-06 22:50] LABS: Lactic Acid 1.4 mmol/L (0.7-2.0)
[2025-03-06] MEDS: ZOFRAN 4 MG IV (22:58)
[2025-03-06] MEDS: LR 1000 IV (22:58)
[2025-03-06] MEDS: DILAUDID 1 MG IV (22:58)
[2025-03-06 22:59] LABS: APTT 26.4 Sec (23.4-35.0); INR 0.88; PT 12.2 Sec (11.4-14.6)
--- NOTE | 2025-03-06 23:01 | ED.GENMED ---
History of Present Illness
General
Chief Complaint: Abdominal Pain
Source: patient
Exam Limitations: none
Time Seen by Provider: 03/06/25 22:20
Nursing documentation reviewed up to this point in time: agreed with
History of Present Illness
History of Present Illness:
Note:
CHIEF COMPLAINT(S)
Abdominal pain and vomiting.
HISTORY OF PRESENT ILLNESS
The patient is a 39-year-old male with a history of pancreatic necrosis, presenting with abdominal pain and vomiting. The patient reports that symptoms started suddenly today with severe pain followed by vomiting within approximately one hour. The
symptoms are described as similar to past episodes attributed to pancreatitis, which the patient has experienced frequently, requiring hospitalization roughly once a month. The patient mentions past management with 2 milligrams of dilaudid every
three hours during hospital admissions, accompanied by intravenous fluids for two days. The patient also reports having pancreatic stents in place. Symptoms are reportedly very severe today.
Chronic conditions affecting care: pancreatic necrosis.
PHYSICAL EXAM
Nursing notes reviewed and vital signs reviewed.
PLAN
A CT scan of the abdomen will be performed to assess the condition of the pancreas. Pain management is prioritized according to the patients request.
DIFFERENTIAL DIAGNOSIS
The Differential Diagnosis includes, in no particular order and is not limited to:
1. Acute pancreatitis
2. Chronic pancreatitis exacerbation
3. Biliary tract disease
4. Gastroenteritis
5. Gastric outlet obstruction
6. Peptic ulcer disease
7. Pseudocyst of pancreas
8. Intestinal obstruction
9. Mesenteric ischemia
10. Pancreatic cancer progression or complication
Disposition:
MEDICAL DECISION MAKING
Chronic conditions affecting care: pancreatic necrosis.
Differential diagnoses considered include acute pancreatitis, chronic pancreatitis exacerbation, biliary tract disease, gastric outlet obstruction, peptic ulcer disease, pseudocyst of pancreas, intestinal obstruction, and pancreatic cancer
progression or complication.
INDEPENDENT REVIEW OF LABS AND INTERPRETATION OF TESTS
My independent review of lipase is 1,909. This result is elevated but not as high as it has been in past episodes (not greater than 4,000), yet still significantly elevated, suggesting an acute or exacerbated pancreatic condition.
PLAN
A CT scan of the abdomen will be performed to assess the condition of the pancreas.
MEDICATION RECONCILIATION
The patient has required multiple doses of pain medication.
DISPOSITION
Patient to be admitted to the hospitalist service.
PATHOLOGIES TO CONSIDER
- Acute pancreatitis
- Chronic pancreatitis exacerbation
- Intestinal obstruction
Past History
Past History
ED Past Medical History: Other (Pancreatitis, pancreatic necrosis)
ED Past Surgical History: Other (Pancreatic stent)
Social History
Tobacco: Smoker
Alcohol: Former
Drug: None
Personal: Other
Living: with family
Employment: Other
Phy Exam
General Physical Exam
General Presentation: moderate distress
General age: appears stated age
General Skin: warm
General Habitus: normal
General Mental: alert
General Hydration: appears well hydrated
ENT Exam
ENT Exam: EOMI, pharynx normal, neck supple and normocephalic
Eye Exam
Eye Exam: PERRL, cornea clear and conjunctiva normal
Cardiovascular Exam
Cardiovascular Exam: regular rate/rhythm, no edema, no murmur and normal peripheral pulses
Pulmonary Exam
Pulmonary Exam: lungs clear, no respiratory distress, no rales, no crackles, no rhonchi, no stridor, no wheezing and no cough
Gastrointestinal Exam
Gastrointestinal Exam: normal bowel sounds, non tender, soft, no organomegaly, no pulsatile mass and non distended
Neurological Exam
Neurological Exam: alert, oriented x3, no motor deficits and speech normal
Musculoskeletal Exam
Musculoskeletal Exam: full ROM and no edema
Skin Exam
Skin Exam: normal color, warm/dry, no rash and no petechia
Psychiatric Exam
Psychiatric Exam: normal mood/affect
Course
Orders/Labs/Results
Orders:
Orders
03/06/25 22:20
Urinalysis Reflex To Culture Urgent
03/06/25 22:21
Electrocardiogram (*1) Urgent
Reason for Study: Abdominal Pain
EKG- Treatment ONCE
03/06/25 22:31
Complete Blood Count/With Diff Urgent
Comprehensive Metabolic Panel Urgent
Lactic Acid Urgent
Lipase Urgent
PTT Urgent
Prothrombin Time Urgent
Troponin I Urgent
03/06/25 22:45
HYDROmorphone [Dilaudid] 1 mg IV NOW STA
Lactated Ringers [Lr] 1,000 ml IV BOLUS
Ondansetron Injectable [Zofran] 4 mg IV NOW STA
03/06/25 22:58
CT Abd/pelvis W Iv Cont Urgent
Comment:
Reason For Exam: upper abd pain
03/07/25 00:24
HYDROmorphone [Dilaudid] 1 mg .ROUTE .STK-MED ONE
03/07/25 00:25
HYDROmorphone [Dilaudid] 1 mg IV NOW STA
Abnormal Lab Results
03/06/25
22:31
WBC 13.0 H 10^3/uL
(4.8-10.8)
RBC 4.54 L 10^6/uL
(4.70-6.10)
MCH 32.2 H pg
(27.0-31.0)
Abs Immat Gran (auto) 0.1 H 10^3/uL
(0-0.05)
Absolute Neuts (auto) 9.9 H 10^3/uL
(1.4-6.5)
Absolute Monos (auto) 0.7 H 10^3/uL
(0.1-0.6)
Neutrophils % 75.8 H %
(42.2-75.2)
Lymphocytes % 16.8 L %
(20.5-51.1)
Chloride 110 H mmol/L
(98-107)
Glucose 128 H mg/dl
(70-99)
Lipase 1909 H* U/L
(23-300)
03/06/25 22:31
03/06/25 22:31
Vital Signs
Initial and Last Documented VS:
Initial Vital Signs
Temp Pulse Resp BP Pulse Ox
98.3 F 90 24 133/87 99
03/06/25 21:51 03/06/25 21:51 03/06/25 21:51 03/06/25 21:51 03/06/25 21:51
Last Documented Vital Signs
Temp Pulse Resp BP Pulse Ox
97.7 F 81 20 133/87 95
03/06/25 23:43 03/06/25 23:04 03/06/25 23:04 03/06/25 21:51 03/06/25 23:04
*Pulse Oximetry
SaO2: 99
Oxygen Mode of Delivery: Room air
Patient hypoxic: no
*Critical Care Note
Total Time (30-74mins, 75-104mins- exclusive of procedures): Not Applicable
ED Attending Note
-
Portions of this chart may have been created with voice recognition software.� Occasional wrong word or��sound alike� substitutions may have occurred due to the inherent limitations of voice recognition software.
Discharge Plan
Departure
Patient Disposition: Admit
Date of Disposition: 03/07/25
Time of Disposition: 00:30
Admit to: Telemetry
Presentation/result/management discussed w/ accepting MD/DO: Hospitalist
Discharge Problem:
Acute on chronic pancreatitis, Smoker
Prescriptions:
No Action
gabapentin 600 mg tablet
600 mg PO TID
Creon 6,000-19,000 -30,000 unit capsule,delayed release(DR/EC)
2 cap PO AC PRN (Reason: with fatty meal )
acetaminophen [Tylenol Extra Strength] 500 mg Tablet
1,000 mg PO Q6HPRN PRN (Reason: mild pain)
duloxetine 30 mg Capsule,Delayed Release(Dr/Ec)
30 mg PO DAILY
polyethylene glycol 3350 [HealthyLax] 17 gram Powder In Packet
17 g PO DAILY Qty: 30 0RF
pantoprazole 40 mg Tablet,Delayed Release (Dr/Ec)
40 mg PO DAILY Qty: 30 0RF
nicotine 21 mg/24 hr Patch 24 Hour
21 mg transdermal DAILY Qty: 30 0RF
docusate sodium 100 mg Capsule
100 mg PO BID Qty: 60 0RF
Referrals:
NONE,* [Family Provider, Internal Medicine]
Interventions
Interventions:
*Risk Screen - Suicide Last Done: 03/06/25 21:51
*General Assessment Last Done: 03/06/25 21:51
*Neglect/Abuse Screening Last Done: 03/06/25 21:51
*ED- Fall Risk Assessment Last Done: 03/06/25 22:55
*ED COVID-19 Vaccine History Last Done: 03/06/25 22:55
ME-Lbifey-Xsgxomjexk Assessment Last Done: 03/07/25 00:11
Discharge Date and Time
Print Language: PASHTO
[2025-03-06 23:03] LABS: Troponin I < 0.012 ng/ml
[2025-03-06 23:04] LABS: Albumin 4.8 g/dl (3.5-5.0); Blood Urea Nitrogen 20 mg/dl (9-20); Carbon Dioxide 25 mmol/L (22-30); Total Protein 7.8 g/dl (6.3-8.2); eGFR > 60.00
[2025-03-06 23:25] LABS: ALT (SGPT) 25 U/L (0-50); AST (SGOT) 21 U/L (17-59); Alkaline Phosphatase 53 U/L (38-126); Calcium 9.8 mg/dl (8.4-10.2); Chloride 110 mmol/L (98-107); Glucose 128 mg/dl (70-99); Potassium 4.2 mmol/L (3.5-5.1); Sodium 143 mmol/L (135-145); Total Bilirubin 0.3 mg/dl (0.2-1.3)
[2025-03-07 00:16] LABS: Lipase 1909 U/L (23-300)
--- NOTE | 2025-03-07 00:22 | HPS.HSE ---
Family Physician
-
Family Physician: * NONE
Chief Complaint
-
Abdominal pain
History of Present Illness
This is a 39-year-old male with past medical history significant for tobacco dependence, GERD, chronic pancreatitis, recurrent acute on chronic pancreatitis, splenic vein thrombosis, narcotic dependence, marijuana use presenting to the emergency
department with abdominal pain.
Patient reported that his symptoms are very typical and started abruptly today just prior to coming to the emergency department. Reports epigastric pain radiating to the bilateral upper quadrants with associated nausea and vomiting. Denies any
diarrhea. He denies any fevers or chills. Patient denies any abdominal bloating.
He reports that he took his usual medications at home but he had no improvement. States pain is radiating to the back and is similar to his prior presentation.
Patient was recently admitted at [facility] with for similar episode. At that time he had CT scan which was essentially unchanged except for area of transverse colon that was thickened. He underwent colonoscopy and biopsy of
polyp which was also removed. He did not have any interval procedures or stenting of the pancreatic system.
Patient reported that he is being evaluated for a possible pancreatic transplantation but due to not having diabetes not currently approved.
In the emergency department patient was afebrile, blood pressure was 132/67 with a pulse rate of 81. He was satting 98% on room air.
His lipase was elevated at 1900.
LFTs were otherwise normal.
White count was 13 the rest of the CBC was unremarkable. Electrolytes BUN/creatinine were all within the normal range.
Medical History
Past Medical History
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
Past Surgical History: Reports Other (No recent major surgery)
Social History
Tobacco: Smoker
Alcohol: None
Drug: Narcotics
Personal: Single
Living: Alone
Family History
Family History: Not pertinent
Allergies / Home Medications
Allergies reflects when Allergies were last updated in [employer].
Home Medications with original date entered in [facility] [employer]
Allergy/Medication List:
Allergies
Allergy/AdvReac Type Severity Reaction Status Date / Time
No Known Allergies Allergy Verified 04/28/24 17:07
Home Medications
gabapentin 600 mg tablet 600 mg PO TID Neurological Condition 06/04/23
jmxnbc-fpyphrtj-jgdrxge 6,000-19,000-30,000 unit capsule,delayed rel (Creon) 2 cap PO AC PRN with fatty meal 10/16/23
acetaminophen 500 mg tablet (Tylenol Extra Strength) 1,000 mg PO Q6HPRN PRN mild pain 04/28/24
duloxetine 30 mg capsule,delayed release 30 mg PO DAILY depression/pain 04/28/24
docusate sodium 100 mg capsule 100 mg PO BID #60 caps 04/30/24
nicotine 21 mg/24 hr daily transdermal patch 21 mg transdermal DAILY #30 ea 04/30/24
pantoprazole 40 mg tablet,delayed release 40 mg PO DAILY #30 tabs 04/30/24
polyethylene glycol 3350 17 gram oral powder packet (HealthyLax) 17 g PO DAILY #30 ea 04/30/24
Review of Systems
-
Constitutional: Reports No Symptoms
EENT: Reports No Symptoms
Respiratory: Reports No Symptoms
Cardiac: Reports No Symptoms
Abdomen/GI: Reports Abdominal Pain, Nausea and Vomiting
: Reports No Symptoms
Musculoskeletal: Reports No Symptoms
Skin: Reports No Symptoms
Neurological: Reports No Symptoms
Endocrine: Reports No Symptoms
Hematologic/Lymphatic: Reports No Symptoms
Psych: Reports No Symptoms
Physical Exam
Vital Signs
Vital Signs
Temp Pulse Resp BP Pulse Ox
97.7 F 81 20 133/87 95
03/06/25 23:43 03/06/25 23:04 03/06/25 23:04 03/06/25 21:51 03/06/25 23:04
Physical Exam
General: No Apparent Distress and Comfortable
HEENT: Moist mucous membranes and Atraumatic
Respiratory: Clear
Cardiac: S1/S2
GI: Soft, Non Distended and Tender (Reports tenderness in the upper abdomen but was able to move and bend without discomfort )
Genito-urinary: No costovertebral tender; No Bloody Urine
Musculoskeletal: No Clubbing, No Cyanosis and No Edema
Neuro: AO x 3 and Nonfocal/grossly intact; No Slurred Speech, Facial Droop or Tremors
Psych: Calm
Laboratory Results
-
03/06/25 22:
03/06/25:
Laboratory Results
PT 12.2 Sec (11.4-14.6) 03/06/25:
INR 0.88 03/06/25:
APTT 26.4 Sec (23.4-35.0) 03/06/25:
Lactic Acid 1.4 mmol/L (0.7-2.0) 03/06/25:
Total Bilirubin 0.3 mg/dl (0.2-1.3) 03/06/25:
AST 21 U/L (17-59) 03/06/25:
ALT 25 U/L (0-50) 03/06/25:
Alkaline Phosphatase 53 U/L (38-126) 03/06/25:
Troponin I < 0.012 ng/ml 03/06/25:
Lipase 1909 U/L (23-300) H* 03/06/25:
Data Reviewed
-
CT Scan: Report Reviewed by me
Lab Data: Labs Reviewed by me
Old Records: Reviewed
Impression/Plan
-
IMPRESSION:
39-year-old with chronic pancreatitis of uncertain etiology status post prior attempted stenting of the pancreatic duct, complicated by walled off necrosis, splenic vein thrombosis, chronic opioid dependence who presents to the emergency department
with abdominal pain nausea vomiting similar to her prior presentation just 1 month ago and found to have elevated lipase. CT scan of the abdomen pelvis is still pending. Patient has normal LFTs. His exam is fairly benign. He is quite adamant
about significant discomfort and states that he often is treated with Dilaudid 2 mg every 3 hours during his acute exacerbations. He is afebrile and hemodynamically stable. No rebound or guarding.
PLAN:
Acute on chronic pancreatitis -
- Admit to [facility]
-Patient does appear to be in significant discomfort and was recently discharged from his usual or hospital at [place] for similar
-On bowel rest, n.p.o., IV fluids w/ LR 150ml/hr, antiemetics, oral oxycodone and IV Dilaudid as needed
- Advance diet as tolerated tomorrow
-Continue apixaban for splenic vein thrombus
-Continue his gabapentin and Cymbalta
- GI consultation
CODE STATUS�full code
[2025-03-07] MEDS: DILAUDID 1 MG IV ×2 (00:25→02:18)
[2025-03-07] MEDS: DILAUDID 0.5 MG IV (00:58)
[2025-03-07 01:11] LABS: Urine Albumin Negative (Neg - Trace); Urine Bilirubin Negative (Negative); Urine Character Slightly Cloudy (Clear); Urine Color Yellow; Urine Glucose Negative (Negative); Urine Ketone Negative (Negative); Urine Leukocyte Negative (Negative); Urine Nitrite Negative (Negative); Urine Occult Blood Negative (Negative); Urine Urobilinogen Negative (Neg - 1+)
[2025-03-07 01:23] VITALS: BP 135/89
[2025-03-07 01:55] VITALS: BP 141/96; BMI 22.4
[2025-03-07] MEDS: LR 1000 IV (02:09)
[2025-03-07] MEDS: ROXICODONE 10 MG PO (03:13)
--- NOTE | 2025-03-07 04:02 | PTCARENOTE ---
Pt came up to the floor from the ED approximately around 0145 and walked to the bed from the stretcher. Pt was given 1mg Dilaudid for pain at 0218 and was still complaining of 9/10 pain and explained that at another hospital they gave him 2 mg of
dilaudid every 3 hours. This RN contacted the TOOL GRINDING TECHNICIAN and explained this and TOOL GRINDING TECHNICIAN noted that pt had an order for oxy PRN as well. Explained this to the PT and PT was adamant that he knows his body and that before the doctor had started him off on 2mg of
Dilaudid and then would decrease it but the 1 mg was going to cause his abdominal muscles to start hurting and he would end up 'on the floor in pain'. TOOL GRINDING TECHNICIAN came up and explained to the patient that he can have the oxy in between doses of Dilaudid and
to at least try it and if that does not work then the attending will be here in a few hours and he can ask him about changing the dose. Pt was nervous about having to wait for the attending to come in and said he would probably have to leave and go
to [place]. This RN gave pt the 10 mg of oxy around 03:13 and around 03:45 pt called RN and said that it did not work and he was going to call his son to come get him to take him to [place]. AMA form was given to pt and PT and TOOL GRINDING TECHNICIAN signed and it
was filed in the pt's chart. Pt was instructed on how to leave the hospital.
--- NOTE | 2025-03-07 04:07 | W.PN.UPDATE ---
Update Note
Progress Note Update
-Called to the patient room as the patient asking for 2mg of Dilaudid.
-The patient has an order of Dilaudid 1mg IV q 4hrs/PRN and oxycodone 10mg q4hrs/PRN. Patient is refusing to take Oxycodone.
-Went to the patient room to assess, Patient is lying in bed on his phone with a smile on his face, looks comfortable with no signs of pain. Normal heart rate and bp. hr 67 and bp 141/96
-Discussed with the patient pain orders and to rotate in between to help with pain management as needed. Patient agreed to take ordered oxycodone.
-30 mins after receiving oxycodone, patient requested to sign AMA.
-Called to the room to sign AMA with the patient. Patient still with no signs of pain and in bed on his phone. Risk of leaving discussed with the patient, he decided to leave. He mentioned that he called his son to pick him up. AMA form signed and
left in the chart.
--- NOTE | 2025-03-07 04:07 | W.DCSUMMARY ---
Discharge Summary
Discharge Data
Date of Admission: 03/07/25
Date of Discharge: 03/07/25
Total time spent discharging patient (in min): 5
-
Pending Results: No
Hospital Course
Patient was admitted with abdominal pain thought secondary to recurrent acute on chronic pancreatitis. Was started on IV fluids bowel rest and placed on analgesic regimen which included oxycodone 10 mg every 4 hours for moderate pain and Dilaudid 1
mg every 4 hours for severe pain.
Within few hours of admission patient continued to request 2 mg of IV Dilaudid every 3 hours. He was offered additional dose of oxycodone orally which he refused. When not asking for pain medication patient did not appear to be in any distress.
His vital signs remain complete stable with a pulse in the 60s and respiratory rate in the tens. Due to not receiving the Dilaudid as frequently as requested (less than 30 minutes after doses) patient requested to leave the hospital. He signed out
AMA at 4 am.
Discharge Plan
-
Patient Disposition: Against Medical Advice
Referrals:
NONE,* [Family Provider, Internal Medicine]
Prescriptions:
No Action
gabapentin 600 mg tablet
600 mg PO TID
Creon 6,000-19,000 -30,000 unit capsule,delayed release(DR/EC)
2 cap PO AC PRN (Reason: with fatty meal )
acetaminophen [Tylenol Extra Strength] 500 mg Tablet
1,000 mg PO Q6HPRN PRN (Reason: mild pain)
duloxetine 30 mg Capsule,Delayed Release(Dr/Ec)
30 mg PO DAILY
polyethylene glycol 3350 [HealthyLax] 17 gram Powder In Packet
17 g PO DAILY Qty: 30 0RF
pantoprazole 40 mg Tablet,Delayed Release (Dr/Ec)
40 mg PO DAILY Qty: 30 0RF
nicotine 21 mg/24 hr Patch 24 Hour
21 mg transdermal DAILY Qty: 30 0RF
docusate sodium 100 mg Capsule
100 mg PO BID Qty: 60 0RF
Discharge Date and Time
Print Language: ARMENIAN
== END 2025-03-07 10:57 | disposition left against medical advice (07) | DRG 440 ==
LOC: 4 EAST ACU 01:08
PROVIDERS: ADMITTING PHYSICIAN Internal Medicine; EMERGENCY PHYSICIAN Student in an Organized Health Care Education/Training Program
DX: K85.90 Acute pancreatitis without necrosis or infection, unspecified (principal); Z53.29 Procedure and treatment not carried out because of patient's decision for other reasons; K86.1 Other chronic pancreatitis; F17.200 Nicotine dependence, unspecified, uncomplicated; K21.9 Gastro-esophageal reflux disease without esophagitis; Z79.01 Long term (current) use of anticoagulants; Z86.718 Personal history of other venous thrombosis and embolism
CPT/HCPCS: 74177; 80053; 81003; 83605; 83690; 84484; 85025; 85610; 85730; 96374; 99285; Q9967